=== PATIENT | female | born 1955 | race Caucasian/White ===

== ENCOUNTER → 2017-06-05 09:57 | Outpatient (CLI) | payer OTHER, SELFPAY ==
--- NOTE | 2017-06-05 10:01 | HPBI_ITS ---
MAMMOGRAPHY - BILATERAL SCREENING REASON FOR EXAM: Female, 62 years old. Routine annual screening examination. PERTINENT HISTORY: Non-contributory. TECHNIQUE: Digital bilateral breast marcio (3D mammographic acquisition) in the CC and MLO projections. 2-D mediolateral oblique (MLO) and craniocaudad (CC) views of both breasts were obtained. CAD: Full Field Digital Mammography with Computer Added Detection was performed. COMPARISON: No comparison mammograms available at this time. If any prior films become available, an addendum to this report can be generated. FINDINGS: Breast Composition: The breasts are almost entirely fatty. There are no dominant masses or suspicious calcifications. No other significant abnormalities are identified. HPBI/SCREENING MAMM (CAD), BILAT IMPRESSION: Negative screening mammogram. Yearly followup mammogram recommended. (A) ASSESSMENT CATEGORY: BIRADS Category 1: Negative. A letter regarding these results will be sent to the patient by the facility within 30 days. Approximately 10% of breast cancers are not detected by mammography. A normal mammogram should not delay biopsy of a clinically suspicious abnormality. [id number] Electronically Signed: Clark Balderas MD at 13:35 EST Tel [phone], Service support ,
== END ==
PROVIDERS: Family Provider Family Medicine; PCP Family Medicine; Visit Provider Family Medicine
DX: Z12.31 Encounter for screening mammogram for malignant neoplasm of breast (principal)
CPT/HCPCS: 77063; 77067

== ENCOUNTER → 2018-05-29 07:48 | Outpatient (CLI) | payer OTHER, SELFPAY ==
--- NOTE | 2018-05-29 07:54 | CT_ITS ---
STUDY: CT SOFT TISSUE NECK WITH CONTRAST REASON FOR EXAM: Female, 63 years old. Right tonsillar mass x2 months RADIATION DOSAGE (If Supplied By Facility): CTDIvol = ( 22.14 ) mGy, DLP = ( 619.18 ) mGycm TECHNIQUE: The patient was scanned in a multi-detector CT scanner. High resolution transaxial imaging was performed following intravenous administration of Isovue 300 75 IV. Sagittal and coronal images were reconstructed. Individualized dose optimization techniques were used for this CT. COMPARISON: None. FINDINGS: Normal bilateral parotid glands. 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 Normal bilateral parapharyngeal spaces. Normal bilateral carotid spaces. There is a 4.2 mm calculus of the proximal right Normal's duct. Normal visualized nasopharynx. Normal retropharyngeal space. Normal perivertebral space. There is a lobular right tonsillar mass with thin enhancing margins measuring 1.7 x 1.5 x 2.9 cm. The visualized tongue, tongue base and oropharynx are normal. The visualized cervical lymph nodes (levels I-) are within normal size limits, and maintain normal morphology. There is no demonstrated solid or cystic mass lesion. There is no abnormal contrast enhancement. Normal epiglottis, bilateral vallecula and hypopharynx. The pre-epiglottic and paraglottic adipose spaces are normal. Normal visualized bilateral piriform sinuses, aryepiglottic folds, vocal cords, and arytenoid-cricoid articulations. Normal subglottic trachea. Normal bilateral lobes of the thyroid gland. Normal visualized pulmonary apices. Normal visualized paranasal sinuses. There is multilevel degenerative changes of the cervical spine. CT/Soft Tissue Neck WITH Contrast IMPRESSION: Lobular right tonsillar mass with thin enhancing margins measuring 1.7 x 1.5 x 2.9 cm. MRI may be helpful for further evaluation. There is a 4.2 mm calculus of the proximal right Normal's duct. Electronically Signed: Eliseo López MD at 23:51 EST , Service support ,
[2018-05-29 08:10] LABS: CREATININE FINGERSTICK 1.1 mg/dL (0.55-1.02)
== END ==
PROVIDERS: Family Provider Family Medicine; PCP Family Medicine; Referring Provider Otolaryngology; Visit Provider Otolaryngology
DX: J35.8 Other chronic diseases of tonsils and adenoids (principal)
CPT/HCPCS: 70491; Q9967

== ENCOUNTER 2018-06-09 09:40 | Day surgery (SDC) | payer OTHER, SELFPAY ==
--- NOTE | 2018-06-02 09:30 | RAD_ITS ---
STUDY: X-RAY CHEST REASON FOR EXAM: Female, 63 years old. Preoperative evaluation. TECHNIQUE: PA and lateral views of the chest. COMPARISON: None. FINDINGS: Hyperinflation. Mild increased linear markings at the lung bases suggestive of underlying atelectasis and/or scarring. There is no demonstrated pleural abnormality. Normal size heart. Normal mediastinum and sohail. Normal visualized pulmonary arteries. There is atherosclerotic calcification of the aortic arch with tortuosity. There are degenerative changes of the visualized thoracic spine. Normal visualized ribs, clavicles, and shoulders. There is no demonstrated abnormality of the visualized soft tissue structures of the upper abdomen. RAD/Chest PA and Lateral IMPRESSION: Mild increased markings at the lung bases suggestive of either linear atelectasis and/or scarring. Electronically Signed: Clark Balderas MD at 9:51 EST , Service support ,
--- NOTE | 2018-06-02 09:40 | EKG12_ITS ---
Test Reason : PREOP Blood Pressure : / mmHG Vent. Rate : 071 BPM Atrial Rate : 071 BPM P-R Int : 140 ms QRS Dur : 082 ms QT Int : 416 ms P-R-T Axes : 083 010 049 degrees QTc Int : 452 ms Normal sinus rhythm Right atrial enlargement Borderline ECG Confirmed by TERESA GEORGE, ETHAN ([id number]), editor index KARL BOWER ([id number]) on 06/03/2018 11:02:11 AM Referred By: Lionel Evans Confirmed By:ETHAN MOORE MD
[2018-06-02 09:44] LABS: Hematocrit 46.1 % (37-47); Hemoglobin 14.9 g/dl (12.0-15.0); Mean Corp Hgb Conc 32.3 g/gl (32-36); Mean Corpuscular Hgb 29.6 pg (27.0-32.0); Mean Corpuscular Volume 91.7 fL (81-99); Mean Platelet Vol. 9.8 fl (6.2-12.0); Platelet Count 196 K/mm3 (150-450); RBC Distribution Width CV 12.7 % (11.6-14.6); RBC Distribution Width SD 41.8 fl (35.1-43.9); Red Blood Count 5.03 M/mm3 (4.2-5.4); Scan Indicated on CBC? Y/N NO
[2018-06-02 10:21] LABS: Anion Gap 9 (5-15); BUN 10 mg/dL (7-18); BUN/Creat Ratio 13.4 RATIO (10-20); Chloride 108 mmol/L (98-107); Creatinine, Serum 0.75 mg/dL (0.55-1.02); EST Glomerular Filtration Rate 83 mL/min (>60); Est Glom Filt Rate - Afr Amer 101 mL/min (>60); Glucose 114 mg/dL (74-106); Potassium 3.7 mmol/L (3.5-5.1); Sodium Level 140 mmol/L (136-145)
[2018-06-02 17:24] LABS: Thyroid Stim Hormone (TSH) 0.02 uIU/mL (0.358-3.74)
--- NOTE | 2018-06-09 | IMM_PTH ---
PATIENT: NUBIA CORNELL LOC: [facility] [place] U#:[id number] AGE/SX: 63/F ROOM: RE06/09/[address]: Dr. Pawan Evans MD : 1955 BED: DIS: 06/09/2018 SPEC #: [id number] RECD: 06/10/18 14:05 STATUS: MICK JENNIFER #: [id number] JM: 06/09/18 00:[address]: Pawan Evans DEPT: IMMUNOHISTOCHEMISTRY RECD BY: Nola Hendrickson ENTERED: 06/10/18 14:06 SP TYPE: IMMUNO OTHR DR: Dr. Leroy Kidd MD Tissues: B - Tonsil, NOS Procedures: p16 (initial) PHYSICIAN & INSTITUTION [place] [id number] SPECIMEN INFORMATION: Tissue Source: B - Right tonsil mass Clinical Info: Neoplasm of pharynx Specimen Number: [id number] CPT code: 49620 METHODOLOGY: Deparaffinized sections of prefer/formalin-fixed tissue or PAP/DQ stained slides are incubated with monoclonal/polyclonal antibodies/oligonucleotide probes. Localization is made via biotin free immunoperoxidase method. Appropriate controls are performed and reacted as expected. Results on target cell population are indicated in the following table: RESULTS: ANTIBODY / CLONE RESULT Block B P16 (E6H4) positive, block staining These tests were developed and their performance characteristics determined by [facility]. They may not have been cleared or approved by the U.S. Food and Drug Administration. The FDA has determined that such clearance or approval is not necessary. INTERPRETATION: B. Right tonsil mass, biopsy: Consistent with squamous cell carcinoma in situ. SJ:katie 06/11/18
[2018-06-09 10:00] VITALS: BP 135/71; PULSE 71; RESP 18; TEMP 530.8; TEMP 987.4; O2SAT 98; BMI 33.3
--- NOTE | 2018-06-09 11:15 | TONS_PTH ---
PATIENT: NUB[place] CORNELL [place] [facility] [place][id number] AGE/SX: 63/F ROOM: RE06/09/[address]: Dr. Pawan Evans MD : 1955 BED: DIS: 06/09/2018 SPEC #: [id number] RECD: 06/09/18 12:47 STATUS: MICK RELokesh #: [id number] JM: 06/09/18 11:[address]: Pawan Evans DEPT: SURGICAL PATHOLOGY RECD BY: Gerson Philippe ENTERED: 06/09/18 14:55 SP TYPE: TONSILS OTHR DR: Dr. Leroy Kidd MD Tissues: A - Tonsil, NOS B - Tonsil, NOS Procedures: Surgery Specimen Level III Surgery Specimen Level IV HEADER OPERATION: Right oropharyngeal biopsy, left tonsillectomy PRE-OP DIAGNOSIS: Neoplasm uncertain behavior of pharynx TISSUE SUBMITTED: A - Left tonsil, B - Right tonsil mass MICROSCOPIC DIAGNOSIS A. Left tonsil, tonsillectomy: Reactive lymphoid hyperplasia. Focal actinomyces colonization. B. Right tonsil mass, biopsy: Squamous cell carcinoma in situ. Negative for invasive carcinoma in the submitted specimen. See comment. SJ:katie 06/10/18 COMMENT B. Results from immunohistochemistry ([id number]) for surrogate HPV marker (p16) will be reported separately. MICROSCOPIC DESCRIPTION Slides are reviewed. GROSS DESCRIPTION A - Received in formalin labeled with the patient's name and designated left tonsil. The specimen consists of a tonsil that weighs 2.1 gm and measures 2.5 x 1.5 x 1 cm. The external surface is pink-cadena, smooth, glistening and somewhat lobulated. Focally it is hemorrhagic, granular and bears cautery artifact. Serial cross sections through the tonsil reveal normal tonsillar architecture. The entire specimen is submitted in one cassette. B - Received in formalin labeled with the patient's name and designated right tonsil mass. The specimen consists of two pieces of cadena soft tissue measuring in aggregate 1.2 x 0.5 x 0.5 cm. The larger piece is bisected. The entire specimen is submitted in one cassette. / JUAN:katie 06/09/18 TC:0 CPT: 45592, 97331
--- NOTE | 2018-06-09 11:19 | DCINST_ITS ---
You will use the following diet at home:: No restrictions Your food should be the consistency of: Mechanical soft (ground) Discharge Activity: May not drive while taking narcotic pain medications. Call your doctor if your incision/area has: Increased Pain/ Swelling Allergies/Adverse Reactions: Allergies morphine Adverse Reaction (Verified 06/09/18 09:57) Vomiting Medications to take at Discharge Bupropion HCl [Bupropion Xl] 300 mg PO DAILY 06/02/18 Levothyroxine [Synthroid] 125 mcg PO DAILY 06/02/18 Lovastatin 40 mg PO DAILY 06/02/18 Oxycodone HCl/Acetaminophen [Percocet 5/325] 1 tab PO Q6H PRN PRN 10 Days #30 tab 06/09/18 The following prescriptions were given: Oxycodone HCl/Acetaminophen [Percocet 5/325] 1 tab PO Q6H PRN PRN 10 Days #30 tab PRN Reason: Pain Orders to be completed after discharge: Thyroid Stim Hormone (TSH) Time Frame: 06/02/18, Location: Laboratory Primary Care Physician: Leroy Kidd MD [Primary Care Provider] - Test Results: Test results from this visit will be discussed in further detail at your follow- up appointment, if applicable. Please Follow Up With: Lionel Evans MD When: 1 week
--- NOTE | 2018-06-09 11:19 | PCM.OPRPT ---
Problem List (1) Mass of oropharynx Status: Chronic Report of Operation Date of Procedure: 06/09/18 Pre-Operative Diagnosis: right oropharyngeal mass Post-Operative Diagnosis: right oropharyngeal mass Surgery/Procedure Performed:: 1. right oropharyngeal mass biopsy. 2. left tonsillectomy Type of Anesthesia:: General Specimen's removed: right oropharynx biopsy, left tonsil Description of Procedure: on the day of the procedure, after appropriate informed consent was obtained the patient was brought to the operating room and placed in supine position on the operating table. she was placed under general endotracheal anesthesia by the anesthesiologist. the endotracheal tube was secured, the eyes were taped. the table was rotated 90 degrees toward the surgeon. a head drape was placed. a chaitanya-jessica mouthgag was inserted into the oral cavity with care not to damage the lips or gums. it was suspended. a right sided 4cm mass replacing the entire tonsillar fossa was seen and a biopsy was taken. this approached the lingual surface of the epiglottis but did not involve it. there was no gross laryngeal involvement. the area was cauterized. the left tonsil was grasped with a curved allis clamp and retracted medially. it was dissected and removed with bovie electrocautery. hemostasis was achieved with suction electrocautery. a valsalva maneuver was held by anesthesiology. hemostasis was observed. floseal was placed in the bilateral tonsillar fossae. the table was rotated 90 degrees toward the anesthesiologist and subsequently extubated uneventfully. she was transferred to the PACU in stable condition.
[2018-06-09 12:07] VITALS: BP 152/78; PULSE 66; RESP 16; TEMP 36.4; O2SAT 98
[2018-06-09 12:15] VITALS: BP 135/71; BP 167/68; PULSE 61; RESP 18; O2SAT 97
[2018-06-09 12:30] VITALS: BP 134/69; BP 135/71; PULSE 59; RESP 16; O2SAT 97
--- NOTE | 2018-06-09 12:36 | SUR.PREOP ---
VS CHARTED WRONG TEMP 98.4
[2018-06-09 12:44] VITALS: BP 130/65; BP 135/71; PULSE 60; RESP 16; TEMP 36.7; O2SAT 99
[2018-06-09 14:01] VITALS: BP 135/71; BP 144/64; PULSE 65; RESP 16; TEMP 36.6; O2SAT 96
== END 2018-06-09 14:17 | disposition home or self-care (01) ==
LOC: SDC 09:41 → AC 09:42
PROVIDERS: Family Provider Family Medicine; PCP Family Medicine; Referring Provider Otolaryngology; Visit Provider Otolaryngology
PROC: (CPT 42800; principal; 2018-06-09 11:00)
DX: C09.9 Malignant neoplasm of tonsil, unspecified (principal); F32.9 Major depressive disorder, single episode, unspecified; E07.9 Disorder of thyroid, unspecified; Z79.899 Other long term (current) drug therapy; E78.00 Pure hypercholesterolemia, unspecified; Z87.891 Personal history of nicotine dependence; D37.05 Neoplasm of uncertain behavior of pharynx
CPT/HCPCS: 42800; 42826; 36415; 71046; 80048; 84443; 85027; 88304; 88305; 88342; 93005; J7120; J2405

== ENCOUNTER → 2018-07-07 08:05 | Outpatient (CLI) | payer OTHER, SELFPAY ==
[2018-06-09 10:00] VITALS: BMI 33.3
--- NOTE | 2018-07-07 09:00 | PET_ITS ---
EXAMINATION: FDG PET CT INDICATIONS: A 63-year-old female with history of head and neck carcinoma presenting for restaging examination. COMPARISON EXAMINATION: CT of the neck report dated 05/29/18. INDEX LESION SIZE SUV INTERPRETATION Right pharyngeal mucosal space-tongue base, lingual tonsil 32.1 mm x 24.1 mm (frame 239) 17.5 Fulfills quantitative criteria for viable neoplasm Right lateral neck level III (n = 1) 15.2 mm (frame 234) 2.9 Fulfills quantitative criteria for viable neoplasm TECHNIQUE: Following the intravenous administration of 17.51 mCi of F-18 deoxyglucose via the left antecubital fossa, multiplanar image acquisitions of the neck, chest, abdomen and pelvis to level of mid thigh, obtained at one hour post radiopharmaceutical administration contemporaneously interpreted with the current CT of the neck, chest, abdomen and pelvis to level of mid thigh, dated 07/07/[address] of the neck report dated 05/29/18 reveal: SERUM GLUCOSE LEVEL: 100 mg/dl. HEIGHT: 64 inches. WEIGHT: 181 lbs. FINDINGS: 1. An asymmetric increase in glucose metabolism is defined in the right pharyngeal mucosal space in the region of the tonsillar pillar, lingual tonsil and tongue base. The calculated maximum standard uptake value is 17.5. The maximal axial diameter of the corresponding metabolic, morphologic abnormality on review of CT of the neck dated 07/07/18 is 32.1 mm (transverse) x 24.1 mm (AP). 2. There is an asymmetric increase in FDG concentration visualized in the right lateral neck involving level III in single nodular presentation. The calculated maximum standard uptake value is 2.9. The maximal axial diameter of the corresponding soft tissue density on review of CT of the neck dated 07/07/18 is 15.2 mm (AP). 3. Normal physiologic distribution of the radiopharmaceutical is apparent in the hepatic (3.2) and splenic parenchyma, both renal units, bladder and visualized intestinal tract. There is symmetric and preserved glucose metabolism noted in the visualized portion of the frontal, occipital, temporal and parietal lobes of the cerebral cortex, as well as cerebral hemispheres and basal ganglia. Diffuse intestinal tract activity is noted throughout all four quadrants of the abdominal-pelvic retroperitoneum, mesentery consistent with normal physiologic distribution of the radiopharmaceutical. Prominent glucose metabolism is defined in the anterior neck, laryngeal structures, which appears contiguous to the cricopharyngeus musculature most consistent with physiologic distribution of the radiopharmaceutical. There is prominent glucose metabolism defined in the ascending and descending thoracic aorta commensurate with activated leukocytes associated with atherosclerotic plaque formation. (Abilio et al, Clinical Nuclear Medicine 29:93, 2004). Pertinent CT findings are as follows. CHEST: Atherosclerotic calcification is defined in the thoracic aorta without evidence of dilatation, aneurysm formation. Coronary arterial calcification is observed. There are no parenchymal densities-nodules defined in the right-left hemithorax demonstrating discernible, quantitatively significant increased glucose metabolism. Bilateral axillary and mediastinal soft tissue is non-glucose avid. ABDOMEN AND PELVIS: There appears to be evidence of gallbladder sludge. Atherosclerotic calcification is defined in the abdominal aorta without evidence of dilatation, aneurysm formation. Pelvic arterial calcification is observed. Colonic diverticulosis is defined without evidence of diverticulitis. Right-left inguinal soft tissue densities are ametabolic. SKELETAL: Degenerative changes defined in the cervical, thoracic and lumbar spine demonstrate no evidence for glucose hypermetabolism. PET/PET/CT Tumor Base -Thigh Init IMPRESSION: 1. ABNORMAL EXAMINATION INDICATIVE OF MALIGNANT-VIABLE NEOPLASM. 2. Increased FDG concentration noted in the right pharyngeal mucosal space contiguous to tongue base, lingual tonsil fulfills quantitative criteria for viable neoplasm. 3. Asymmetric enhanced glucose concentration observed in the right lateral neck fulfills quantitative criteria for viable neoplasm. 4. No other quantitatively significant hypermetabolic abnormalities are noted. There is no definitive scintigraphic evidence of distant metastatic disease. Electronic Signature Jarod Pierce D.O. Electronically Signed: Jarod Pierce DO at 10:01 EDT Tel , Service support ,
== END ==
PROVIDERS: Family Provider Family Medicine; PCP Family Medicine; Referring Provider Internal Medicine Hematology & Oncology; Visit Provider Internal Medicine Hematology & Oncology
DX: C09.9 Malignant neoplasm of tonsil, unspecified (principal)
CPT/HCPCS: 78815; A9552

== ENCOUNTER 2018-09-05 17:51 | Emergency (ER) | payer OTHER, SELFPAY ==
[2018-09-05 17:52] VITALS: BP 104/71; PULSE 66; RESP 14; TEMP 36.3; O2SAT 97; BMI 27.9
--- NOTE | 2018-09-05 18:46 | ED.DCSUM_ITS ---
History of Present Illness Chief Complaint: General Illness Detail of Chief Complaint: feels dehydrated Informant: Patient Onset: Weeks - 1 Context: Gradual Onset Timing: Continuous Quality: malaise, decreased po intake Location: generalized Current Severity: Moderate Maximum Severity: Moderate Worsened by: n/a Relieved by: n/a Narrative: Patient is on chemotherapy for tonsillar cancer, and she has had radiation. Her last chemotherapy treatment was about 3 weeks ago. She has trouble swallowing, whenever she does she gets a lot of mucus that she ends up having to cough out that is thick, and her appetite is poor. Subsequently her oral intake has been poor, she is still urinating but it is a little less than usual and darker. She does not feel lightheaded even with standing, she feels malaise but that is not new. She has had no fevers. She had some routine blood work today that showed she was dehydrated so her oncologist called her back after she got home and advised that she come to the ER for IV fluids given the scenario. These labs are not available to us at this time. - Past Medical History (1) Tonsillar cancer Status: Chronic (2) Hypothyroid Status: Chronic (3) Depression Status: Chronic Past Medical History - Allergies and Home Meds Allergies/Adverse Reactions: Allergies morphine Adverse Reaction (Verified 09/05/18 17:52) Vomiting Primary Care Physician: Leroy Kidd MD [Primary Care Provider] - Lives: Spouse/ Significant Other Smoking Status: Former smoker Review of Systems General: Reports: Malaise. Denies: Chills, Fever Eyes: Denies: Visual changes - bilaterally, Diplopia ENT: Denies: Rhinorrhea, Sore throat Cardiovascular: Denies: Chest pain, Palpitations Respiratory: Reports: Cough - Occasional, when mucus present. Denies: Dyspnea, Dyspnea on exertion Gastrointestinal: Denies: Abdominal pain, Nausea, Vomiting, Diarrhea, Melena, Hematochezia Genitourinary: Reports: - - Slightly decreased urine output. Denies: Dysuria, Hematuria, Frequency Musculoskeletal: Denies: Back pain, Swelling, Extremity Pain Skin: Denies: Rash, Abscess, Wounds Neurological: Denies: Headache, Weakness, Numbness Physical Exam Vital Signs/Narrative: Vital Signs Temp Pulse Resp BP Pulse Ox 09/05/18 17:52 97.4 F L 66 14 104/71 97 Inital Vital Signs reviewed: Yes General: Well nourished, Well developed, No Acute Distress Head: Normocephalic, Atraumatic Eyes: Perrl, EOMI ENT: Moist mucous membranes - With dry lips, No rhinorrhea, - - Diffuse significant hyperemia posterior oropharynx, no obvious asymmetry. No trismus. Neck: Supple, Nontender Cardiovascular: Regular rate, Regular rhythm, No murmurs Respiratory: No distress, CTA bilaterally, Chest nontender Abdomen: Soft, Nontender, Nondistended, Normal bowel sounds Back: Nontender, Normal Inspection Extremities: Nontender, No edema Skin: Normal color, No rash, No Trauma Neurological: Alert, Oriented x3, Cranial nerves II-XII grossly intact, Normal Strength, Normal Sensation Psychological: Normal affect, Normal Mood Diagnostic/Tx/Re-eval Laboratory Tests 09/05/18 09/05/18 Range/Units 18:00 18:00 WBC 3.5 L (4.4-11.0) K/mm3 RBC 5.91 H (4.2-5.4) M/mm3 Hgb 17.2 H (12.0-15.0) g/dl Hct 47.6 H (37-47) % MCV 80.5 L (81-99) fL MCH 29.1 (27.0-32.0) pg MCHC 36.1 H (32-36) g/gl RDW 13.0 (11.6-14.6) % RDW Differential 37.2 (35.1-43.9) fl Plt Count 214 (150-450) K/mm3 MPV 9.8 (6.2-12.0) fl Immature Gran % (Auto) 0.600 (0.0-0.9) % Neut % (Auto) 42.8 L (47-70) % Lymph % (Auto) 31.5 (19-41) % [place] % (Auto) 22.8 H (0-10) % Eos % (Auto) 2.0 (0-5) % Baso % (Auto) 0.3 (0-1) % Absolute Neuts (auto) 1.5 L (2.0-7.7) X10^3/uL Absolute Lymphs (auto) 1.09 (0.83-4.51) X10^3/ul Total Counted Not Reportable Differential Comment SEE COMMENT Platelet Estimate ADEQUATE (ADEQ) Anisocytosis RARE Sodium 124 L (136-145) mmol/L Potassium 3.1 L (3.5-5.1) mmol/L Chloride 86 L (98-107) mmol/L Carbon Dioxide 26.0 (21.0-32.0) mmol/L Anion Gap 12 (5-15) BUN 50 H (7-18) mg/dL Creatinine 2.15 H (0.55-1.02) mg/dL Estim Creat Clear Calc 22.83 ml/min Est GFR (MDRD) Af Amer 30 L (>60) mL/min Est GFR (MDRD) Non-Af 25 L (>60) mL/min BUN/Creatinine Ratio 23.3 H (10-20) RATIO Glucose 107 H (74-106) mg/dL Calcium 10.0 (8.5-10.1) mg/dL - Medical Decision Making Although Dr. Isabel apparently faxed the labs to us, they must have gotten lost and I was unable to see them so we repeated her chemistries and blood counts. She has acute kidney injury with a BUN of 50 and a creatinine over 2, her potassium is 3.1, and her sodium is 124. I discussed this with Dr. Isabel, who thinks it is just dehydration (as opposed to paraneoplastic syndrome) causing the sodium and potassium drops and since the patient is doing better after IV fluids he is comfortable with her going home and following up after the weekend as scheduled, patient is comfortable with that as well. She is encouraged to return over the weekend if she feels it is required. She is getting IV potassium 10 mEq from us in addition to 2 L of fluid total. ED Disposition - Plan for ED Patient: Disposition: Home or Assisted Living Diagnosis: Dehydration, Hypokalemia due to inadequate potassium intake, Hyponatremia with extracellular fluid depletion, Tonsillar cancer Instructions: ED Dehydration, ED Hyponatremia, ED Potassium Deficiency Referrals: Jaiden Isabel, [STAFF PHYSICIAN] - Keep Timo appointment (please return over the weekend if you feel worse like you need more IV fluids)
[2018-09-05] MEDS: 0.9% Normal Saline 1,000 ML 999 ML IV ×2 (18:50→19:36)
[2018-09-05 19:07] LABS: Absolute Lymphocyte Count 1.09 X10^3/ul (0.83-4.51); Absolute Neutrophil Count 1.5 X10^3/uL (2.0-7.7); Basophil# 0.01 X10^3/uL; Basophil% 0.3 % (0-1); Eosinophil# 0.07 X10^3/uL; Hematocrit 47.6 % (37-47); Lymphocyte # 1.09 X10^3/ul (4.0); Lymphocyte % 31.5 % (19-41); Mean Corpuscular Volume 80.5 fL (81-99); Mean Platelet Vol. 9.8 fl (6.2-12.0); Monocyte# 0.79 X10^3/uL; Monocyte% 22.8 % (0-10); Neutrophil # 1.48 X10^3/uL (2.7-7.7); Neutrophil % 42.8 % (47-70); Platelet Count 214 K/mm3 (150-450); RBC Distribution Width SD 37.2 fl (35.1-43.9); Red Blood Count 5.91 M/mm3 (4.2-5.4); White Blood Count 3.5 K/mm3 (4.4-11.0)
[2018-09-05 19:11] LABS: Anion Gap 12 (5-15); BUN 50 mg/dL (7-18); BUN/Creat Ratio 23.3 RATIO (10-20); Chloride 86 mmol/L (98-107); Creatinine, Serum 2.15 mg/dL (0.55-1.02); EST Glomerular Filtration Rate 25 mL/min (>60); Est Glom Filt Rate - Afr Amer 30 mL/min (>60); Estimated Creatinine Clearance 22.83 ml/min; Glucose 107 mg/dL (74-106); Potassium 3.1 mmol/L (3.5-5.1); Sodium Level 124 mmol/L (136-145)
[2018-09-05 19:21] LABS: Differential Indicated SCAN CRITERIA MET; Hemoglobin 17.2 g/dl (12.0-15.0); Mean Corpuscular Hgb 29.1 pg (27.0-32.0); POSITIVE COUNT NO; POSITIVE DIFFERENTIAL YES; POSITIVE MORPHOLOGY NO
[2018-09-05 19:22] LABS: Mean Corp Hgb Conc 36.1 g/gl (32-36)
[2018-09-05 19:32] LABS: Anisocytosis RARE; Platelet Estimate ADEQUATE (ADEQ)
[2018-09-05 19:39] VITALS: BP 123/71; PULSE 70; RESP 15; O2SAT 100
[2018-09-05] MEDS: Potassium Chloride 10mEq/100mL 10 MEQ/100 ML IV.SOLN. 100 MEQ IV BOLUS (21:24)
[2018-09-05 22:30] VITALS: BP 126/68; PULSE 69; RESP 15; O2SAT 100
== END 2018-09-05 22:31 | disposition home or self-care (01) ==
PROVIDERS: Emergency Provider Emergency Medicine; Family Provider Family Medicine; PCP Family Medicine
DX: E86.0 Dehydration (principal); E87.6 Hypokalemia; E87.1 Hypo-osmolality and hyponatremia; C09.9 Malignant neoplasm of tonsil, unspecified; N17.9 Acute kidney failure, unspecified; E03.9 Hypothyroidism, unspecified; F32.9 Major depressive disorder, single episode, unspecified; Z79.899 Other long term (current) drug therapy; Z87.891 Personal history of nicotine dependence
CPT/HCPCS: 80048; 85025; 96361; 96365; 99282; J7030

== ENCOUNTER 2018-12-25 09:22 | Inpatient (IN) | payer OTHER, MEDICARE, SELFPAY ==
[2018-12-25] VITALS (7 sets, daily range): BP systolic 84–95; BP diastolic 55–75; PULSE 56–80; RESP 14–18; TEMP 36.4; O2SAT 94–99; BMI 22.3; BMI 21.3; BMI 21.4
--- NOTE | 2018-12-25 09:40 | ED.VISSUMM ---
- ER Visit Summary Date of Service: 12/25/18 Chief Complaint: Constipation then diarrhea and now feels dehydrated History of Present Illness: The patient is a 63 F history of tonsillar cancer in which she had one tonsil removed and then underwent chemo and radiation that is now over. Last chemotherapy was in September. Patient states she was constipated the last week or so. She took milk of magnesia without any relief. Then used a fleets enema without relief and then a Fleet suppository and now has had some diarrhea. He denies a significant amount. Denies any melena. No nausea or vomiting. No abdominal pain. States she just feels like she is dehydrated again. Denies any dysuria or fever. Physical Examination: Older female no acute distress. Initial blood pressure is low at 91/67. She is afebrile. She does not look septic or toxic. HEENT exam unremarkable. Tongue appears moist. Neck nontender. Trachea midline. Lungs clear to auscultation bilaterally. Heart regular rhythm no murmur. Rate about 80. Abdomen soft and nontender. Normal bowel sounds no peritoneal signs. No signs of obstruction. No distention. Patient is moving all 4 extremities. No edema. Neurologically she is awake and alert with no focal motor deficits. Test Results: CBC shows normal white count of 4 and hemoglobin of 16. BMP shows low sodium of 120. Previously his bili is low as 124. Normal gap of 12. BUN 29 creatinine 2.31. There is some renal insufficiency. Emergency Department Course and Treatment: With the patient's low blood pressure and recent diarrhea she will be treated with IV fluids for potential dehydration. Treatment Plan: Repeat exam patient is doing well at 11:50 AM. Due to her low sodium and renal insufficiency I will speak to the hospitalist to admit her. She has received a liter of normal saline. Disposition: Admission Impression: Acute diarrhea post treatment for constipation Hypotension secondary to dehydration Acute hyponatremia Renal insufficiency This note was generated with Dr. Tariffation software. It may contain incorrect words, spelling, and punctuation that were not noted in review of the chart prior to signing ED Disposition - Plan for ED Patient: Referrals: Leroy Kidd MD [Primary Care Provider] -
[2018-12-25] MEDS: 0.9% Normal Saline 1,000 ML 1000 ML IV (10:08)
[2018-12-25 10:18] LABS: Absolute Lymphocyte Count 0.27 X10^3/uL (0.83-4.51); Absolute Neutrophil Count 3.3 X10^3/uL (2.0-7.7); Basophil# 0.01 X10^3/uL; Basophil% 0.3 % (0-1); Eosinophil# 0.01 X10^3/uL; Eosinophils% 0.3 % (0-5); Hematocrit 46.4 % (37-47); Hemoglobin 16.1 g/dL (12.0-15.0); Lymphocyte # 0.27 X10^3/ul (4.0); Lymphocyte % 6.8 % (19-41); Mean Corp Hgb Conc 34.7 g/dL (32-36); Mean Corpuscular Hgb 32.2 pg (27.0-32.0); Mean Corpuscular Volume 92.8 fL (81-99); Mean Platelet Vol. 10.1 fl (6.2-12.0); Monocyte# 0.35 X10^3/uL; Monocyte% 8.8 % (0-10); NRBC Flagged by Analyzer 0 % (0-5); Neutrophil # 3.31 X10^3/uL (2.7-7.7); Neutrophil % 83.5 % (47-70); POSITIVE DIFFERENTIAL YES; Platelet Count 159 K/mm3 (150-450); RBC Distribution Width CV 13.4 % (11.6-14.6); RBC Distribution Width SD 45.2 fl (35.1-43.9)
[2018-12-25 10:38] LABS: Anion Gap 12 (5-15); BUN 29 mg/dL (7-18); BUN/Creat Ratio 12.6 RATIO (10-20); Calcium,Total 10.2 mg/dL (8.5-10.1); Chloride 87 mmol/L (98-107); Creatinine, Serum 2.31 mg/dL (0.55-1.02); EST Glomerular Filtration Rate 23 mL/min (>60); Est Glom Filt Rate - Afr Amer 27 mL/min (>60); Estimated Creatinine Clearance 21.25 ml/min; Glucose 97 mg/dL (74-106); Potassium 4.8 mmol/L (3.5-5.1); Sodium Level 120 mmol/L (136-145)
[2018-12-25 11:01] LABS: Differential Indicated SCAN CRITERIA MET
--- NOTE | 2018-12-25 12:19 | HP.PCM_ITS ---
Problem List (1) Hyponatremia Status: Acute (2) ARF (acute renal failure) Status: Acute (3) Dehydration Status: Acute (4) Diarrhea Status: Acute (5) Depression Status: Chronic (6) Hypothyroid Status: Chronic (7) Mass of oropharynx Status: Resolved Comment: no longer present after chemo and radiation (8) Tonsillar cancer Status: Chronic History of Present Illness Date of Admission: 12/25/18 Chief Complaint: diarrhea and not feeling well The patient is a 63 year old F with a past medical history of tonsillar cancer treated by Dr. Isabel, hypothyroidism, former smoking hx(quit in 2016) and depression who presented to the ED at [facility] on 12/25/18 c/o diarrhea after laxatives and not feeling well. She took laxatives recently because she had not had a BM in 2 weeks. She quit taking all her medications because she could not taste anything after the chemo and radiation and she lost her appetite. She has been experiencing weakness, loss of appetite, hair loss, constipation, always feels cold and she is chronically fatigued. she has been losing weight because she has not been eating. She denies abdominal pain, nausea/vomiting, fevers/sweats/chills, cough and shortness of breath. Vital signs at presentation to the emergency room were temperature 97.5, pulse rate 79, blood pressure 91/67, respiratory rate 14 and she was 96% saturated on room air. CBC was remarkable for a white blood cell count of 4.0, hemoglobin of 16.1 with normochromic normocytic indices and a normal platelet count. Sodium was low at 120 and the chloride was 87. BUN is 29 and the creatinine was 2.31. Calcium is increased at 10.2 and the LFTs were unremarkable. TSH was 79.2 and the free T4 was low at 0.62. Cortisol is currently pending. She received 1 liter of NS in the ED. She was admitted to the hospital with a dx of severe hyponatremia due to hypothyroidism and to dehydration. IV fluids were ordered and she has been restarted on Levothyroxine. Her taste is coming back and she loves ice cream and CIB. Will have the senior sql server developer see her and make recommendations. 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 Smoked for 40 years, 1/2 PPD Tobacco Use: Non-smoker Alcohol: None Drugs: None - *Family History Maternal History Items: Cancer - Her mother of lung cancer Paternal History Items: - - Father of a brain tumor Sibling History Items: - - She has 2 siblings, one with irritable bowel syndrome and the other has Munchhausen's per the pt Review of Systems Constitutional: Reports: Anorexia, Malaise, Weakness, Fatigue. Denies: Chills, Fever, Weight Change Eyes: Denies: Blurred vision HEENT: Reports: - - no pain with swallowing, reports decreased ability to taste. Denies: Difficulty Swallowing, Head Aches, Sinus Congestion, Sinus Drainage, Sore Throat Cardiovascular: Denies: Chest Pain, Edema, Heaviness, Light Headedness, Palpitations Respiratory: Denies: Cough, Hemoptysis, Pleuritic Pain, Shortness of breath at rest, Shortness of breath upon exertion, Sputum production, Wheezing Gastrointestinal: Reports: Constipation, Diarrhea - only after several laxatives. Denies: Abdominal Pain, Nausea, Vomiting Genitourinary: Denies: Dysuria Gynecological: Denies: Breast symptoms, Vaginal discharge Musculoskeletal: Denies: Joint Pain, Joint Tenderness, Neck Pain Skin: Denies: Jaundice, Rash, Wounds Neurological: Denies: Balance problems, Change in Speech, Focal weakness, Numbness, Tingling, Tremor, Seizures Psychiatric: Reports: Depression. Denies: Anxiety, Homicidal Ideations, Suicidal Ideations Endocrine: Reports: Change in Body Habitus - has been losing weight due to decreased appetite and decreased intake, Heat/ Cold Intolerance - cold intolerance, Hx of Irradiation - to the neck and throat for tonsillar CA Hematologic/ Lymphatic: Denies: Easy Bruising, Easy Bleeding, Hx of blood clot VTE Information - Inpt Only VTE Present on Admission: No VTE Mechan Device Prophylaxis: SCD's, Knee High ALFONSO Hose VTE Pharm Prophylaxis ordered?: Yes Patient Problems: Active and Suspected Problems Hyponatremia (Acute) ARF (acute renal failure) (Acute) Dehydration (Acute) Diarrhea (Acute) - Physical Exam General: Alert, Oriented x3, Cooperative, No apparent distress, - - she is thin, HEENT: Atraumatic, PERRLA, EOMI, Normocephalic Oral: No Gingival or Mucosal Lesions/ Ulcerations, Dry Mucosa Neck: Supple, No JVD, Negative Carotid Bruits, No Nodes, Trachea Midline Lungs: Clear to auscultation - after a cough and a few deep breaths Cardiovascular: Regular rate, Regular Rhythm, Normal S1, Normal S2, No murmurs, No rub noted, No Gallop Abdomen: Bowel Sounds Present, Soft, Non Tender, Non-Distended, - - pt was disimpacted of a large amount of both hard and soft stool Extremities: No clubbing, No cyanosis, No edema, No Calf Tenderness, Peripheral Pulses Normal Skin: No rashes, No breakdown, - - she has hyperpigmentation over the anterior neck and the upper chest due to the recent radiation Musculoskeletal: Arthritic Changes Neurological: Cranial nerves II-XII grossly intact, Neuro grossly intact Psych/Mental Status: Normal Affect, Appropriate Vital Signs Temp Pulse Resp BP Pulse Ox 97.5 F L 79 18 91/67 96 12/25/18 09:23 12/25/18 09:23 12/25/18 12:06 12/25/18 09:23 12/25/18 09:23 Oxygen Delivery Method Room Air Weight: 130 lb Body Mass Index (BMI) 22.3 Laboratory Tests Past 24 Hrs 12/25/18 12/25/18 10:09 10:09 WBC 4.0 L RBC 5.00 Hgb 16.1 H Hct 46.4 MCV 92.8 MCH 32.2 H MCHC 34.7 RDW Std Deviation 45.2 H RDW Coeff of Julien 13.4 Plt Count 159 MPV 10.1 Immature Gran % (Auto) 0.300 Neut % (Auto) 83.5 H Lymph % (Auto) 6.8 L [place] % (Auto) 8.8 Eos % (Auto) 0.3 Baso % (Auto) 0.3 Absolute Neuts (auto) 3.3 Absolute Lymphs (auto) 0.27 L Nucleated RBC % 0 Differential Comment COMMENT Diff Path Review May foll Sodium 120 L Potassium 4.8 Chloride 87 L Carbon Dioxide 21.0 Anion Gap 12 BUN 29 H Creatinine 2.31 H Estim Creat Clear Calc 21.25 Est GFR (MDRD) Af Amer 27 L Est GFR (MDRD) Non-Af 23 L BUN/Creatinine Ratio 12.6 Glucose 97 Calcium 10.2 H Assessment/Plan All Active Problems Hyponatremia (Acute) ARF (acute renal failure) (Acute) Dehydration (Acute) Diarrhea (Acute) Mass of oropharynx (Resolved) Impressions 1. Severe Hyponatremia due to dehydration and hypothyroidism. Hydrate with NS gently and recheck the lab in the AM 2. Hypothyroidism hx - non-compliant with medication since October....now severely hypothyroid. Restart Levothyroxine at 100 mcg and recheck TSH and T4 in 4 weeks. Check a cortisol 3. hx of Tonillar CA - follows with Dr. Isabel and Dr. Evans. Had 30 radiation treatments and 2 chemo tx's and no surgery 4. severe malnutrition/weight loss - CIB ice cream shakes BID. Consult the senior sql server developer for recommendations. 5. hx of depression - seems to be doing well off the Wellbutrin. If she should require a antidepressant would not use Wellbutrin since it suppresses appetite. 6. VASILE - IV fluids ordered. Check a urine for sodium and creat to calculate the FeNA. 7. DVT prophylaxis with Heparin, SCD's and TEDS. recheck lab in the AM Code Visit Inpatient E&M: 58293 Init Hosp L3
--- NOTE | 2018-12-25 12:38 | CASEMGMT ---
RN CM Assessment Introduced role of RN CM to patient and patient Jaiden at bedside.? Patient is alert, oriented and able?to participate in RN CM Assessment. ?Care providers, pharmacy, and demographics verified. Presentation: Constipation for the last week or so, has tried MoM, Fleets enema, and Fleets Supp. Now has some Diarrhea. Feels Dehydrated. H/o Tonsillar CA, had tonsils removed, Chemo and Radiation completed, last Chemo in September. Admit Dx: Hyponatremia, ARF, Diarrhea Re-Admit: No Barriers/Issues: None PCP: Leroy Kidd Specialists: Onc- Dr Isabel, Rad- Dr Sandoval, ENT- Dr Evans Preferred Pharmacy: [facility], [place] Insurance: MMO Rx Benefit: Yes? LNOK: Jaiden Srinivasan LW/HPOA: None, declines offered information or services this admission. Aware if changes her mind to let staff know. Living Arrangements:?Lives with her in a 2 story home, rooms are located on upper wi, however they have made an area for patient to stay on Main wi and patient does not go up to upper level. 3 steps to enter home. ADL?s: Ambulates with rollator. Requires assistance with showering and meals, otherwise independent with all other ADLs Transportation: Patient does not drive, transports patient and will upon DC DME: Rollator, denies any other DME HHC: None SNF: None Goal: Home and does not think will have any needs. Denies any questions, concerns or issues with DC planning at this time. Aware CM remains available for any emerging needs. DC PLAN: Home with no anticipated needs identified at this time. GABRIEL Styles
[2018-12-25 13:24] LABS: AST(SGOT) 37 U/L (15-37); Alanine Aminotransfer ALT/SGPT 20 U/L (13-56); Albumin, Serum 3.7 g/dL (3.2-5.0); Alkaline Phosphatase 84 U/L (45-117); Bilirubin, Direct 0.24 mg/dL (0.00-0.30); Globulin 4.4 g/dL (2.2-4.2); Protein, Total 8.1 g/dL (6.4-8.2)
[2018-12-25 13:31] LABS: Magnesium 2.4 mg/dL (1.6-2.6); T4 Free Direct 0.62 ng/dL (0.76-1.46)
[2018-12-25] MEDS: 0.9% Normal Saline 1,000 ML 100 ML IV (14:35)
[2018-12-25] MEDS: Famotidine 20 MG Tablet PO (14:36)
[2018-12-25] MEDS: Fleet Enema 1 ML RECTAL (16:45)
[2018-12-25 20:22] LABS: Osmolality, Serum 264 mOsm/KG (280-301)
[2018-12-25] MEDS: Atorvastatin Calcium 10 MG Tablet PO (21:16)
[2018-12-25] MEDS: Polyethylene Glycol 3350 17 GM PACKET PO (21:18)
[2018-12-25 21:25] LABS: Bacteria 0 SEEN /hpf (None Seen); Mucous, Urine 0 SEEN /hpf (<or=2+); Red Blood Cells-Urine 0 SEEN /hpf (0-5)
[2018-12-25 21:35] LABS: Color, Urine Yellow (Yellow); Glucose, Dipstick Normal (Normal); Ketone-Dipstick 5 mg/dl (Negative); Leukocyte Esterase-Dipstick Negative /ul (Negative); Nitrite-Dipstick Negative (Negative); Occult Blood-Urine Negative /ul (Negative); Protein-Dipstick 15 mg/dl (Negative); Specific Gravity, Urine 1.015 (1.002-1.030); Urine Bilirubin Dipstick Negative (Negative); Urine Clarity Clear (Clear); Urine Urobilinogen Normal (Normal)
[2018-12-25 21:36] LABS: Osmolality, Urine 387 mOsm/KG
[2018-12-25 21:41] LABS: Hyaline Cast 0-5 SEEN /lpf (0-5)
[2018-12-25 21:44] LABS: Transitional Epithelial - Ur 0-5 SEEN /hpf (0-5); White Blood Cells 0-5 SEEN /hpf (0-5)
[2018-12-25 21:45] LABS: Squamous Epithelial Cells - UA 0-5 SEEN /hpf (5-10)
[2018-12-25 21:51] LABS: Urine Sodium 22 mmol/L (Not Establ.)
[2018-12-25] MEDS: 0.9% Normal Saline 1,000 ML 999 ML IV (23:08)
[2018-12-26] VITALS (10 sets, daily range): BP systolic 72–96; BP diastolic 48–62; PULSE 52–75; RESP 16–18; TEMP 36.3–36.9; O2SAT 96–100
[2018-12-26] MEDS: 0.9% Normal Saline 1,000 ML 150 ML IV ×2 (00:18→08:46)
[2018-12-26] MEDS: 0.9% Normal Saline 1,000 ML 999 ML IV ×2 (02:18→15:34)
[2018-12-26] MEDS: Levothyroxine 75 MCG Tablet PO (05:09)
[2018-12-26 05:52] LABS: Hematocrit 32.7 % (37-47); Hemoglobin 11.3 g/dL (12.0-15.0); Mean Corp Hgb Conc 34.6 g/dL (32-36); Mean Corpuscular Hgb 32.8 pg (27.0-32.0); Mean Corpuscular Volume 95.1 fL (81-99); Platelet Count 101 K/mm3 (150-450); RBC Distribution Width CV 13.4 % (11.6-14.6); RBC Distribution Width SD 46.8 fl (35.1-43.9); Red Blood Count 3.44 M/mm3 (4.2-5.4); White Blood Count 2.9 K/mm3 (4.4-11.0)
[2018-12-26 06:41] LABS: Anion Gap 9 (5-15); BUN 22 mg/dL (7-18); BUN/Creat Ratio 14.1 RATIO (10-20); Calcium,Total 7.6 mg/dL (8.5-10.1); Chloride 105 mmol/L (98-107); Creatinine, Serum 1.56 mg/dL (0.55-1.02); EST Glomerular Filtration Rate 35 mL/min (>60); Est Glom Filt Rate - Afr Amer 43 mL/min (>60); Estimated Creatinine Clearance 31.46 ml/min; Glucose 74 mg/dL (74-106); Magnesium 1.9 mg/dL (1.6-2.6); Potassium 3.4 mmol/L (3.5-5.1); Sodium Level 132 mmol/L (136-145)
[2018-12-26] MEDS: Famotidine 20 MG Tablet PO (09:11)
[2018-12-26] MEDS: Polyethylene Glycol 3350 17 GM PACKET PO (09:11)
[2018-12-26] MEDS: Hydrocortisone 25 MG Suppository RECTAL (09:11)
--- NOTE | 2018-12-26 10:10 | PN_ITS ---
Patient Problems: Active and Suspected Problems Hyponatremia (Acute) ARF (acute renal failure) (Acute) Dehydration (Acute) Diarrhea (Acute) Subjective: Afebrile since admission. Blood pressures were low overnight and ranged from 81/52-80 8/59. Heart rate is in the 50s and 60s. She is maintaining an appropriate oxygen saturation on room air with pulse ox ranging from 96 to 99%. Poor oral intake. Fluid balance since admission is positive for thousand 760. All lab was personally reviewed. The white blood cell count today is 2.9 and the hemoglobin is 11.3, down from 16.1 with hydration. Platelets are low at 101,000 today, down from 159,000 at admission. Sodium today is 132 and the potassium is 3.4. Serum bicarb is 18 and her BUN is 22 with a creatinine of 1.56, down from 2.31 at admission. Serum osmolality was low at 264. Cortisol was appropriate at 35.8. Urine osmolality was 387. The urine sodium was 22 and the urine creatinine was 130. Fractional excretion of sodium was less than 1% and this is consistent with prerenal azotemia. Calcium is low at 7.6 today and phosphorus is low at 2.0. Magnesium was normal at 1.9. Feels great today. Denies lightheadedness. No SOB and no CP. Had a very large BM after enema yesterday. Orthostatics are + today. No nausea and no confusion, no YUEN Objective: PHYSICAL EXAM: GENERAL: alert, oriented X 3, Cooperative, NAD, Lying flat in bed with no SOB, ORAL: moist mucosa, no mucosal lesions NECK: No JVD, supple, trachea midline LUNGS: CTA, symmetric chest expansion HEART: RRR, Normal S1 and S2, no rub, no gallop ABDOMEN: soft, NT, ND, BS present, no guarding with palpation EXTREMITIES: no edema, no cyanosis, no calf tenderness SKIN: No rashes, no breakdown NEUROLOGIC: no focal neurologic deficits PSYCH: appropriate, normal affect, pleasant - Physical Exam Vital Signs Temp Pulse Resp BP Pulse Ox 98.0 F 60 18 87/57 L 96 12/26/18 03:40 12/26/18 03:40 12/26/18 03:40 12/26/18 03:40 12/26/18 07:10 Oxygen Delivery Method Room Air Weight: 135 lb 12.876 oz Body Mass Index (BMI) 21.3 Intake and Output for Last 24 Hours 12/24/18 12/25/18 12/26/18 23:59 23:59 23:59 Intake Total 1000 / 1000 4210.0 / 4210.0 Output Total 150 / 150 300 / 300 Balance 850 / 850 3910.0 / 3910.0 Laboratory Tests Past 24 Hrs 12/25/18 12/25/18 12/25/18 10:09 10:09 10:09 WBC 4.0 L RBC 5.00 Hgb 16.1 H Hct 46.4 MCV 92.8 MCH 32.2 H MCHC 34.7 RDW Std Deviation 45.2 H RDW Coeff of Julien 13.4 Plt Count 159 MPV 10.1 Immature Gran % (Auto) 0.300 Neut % (Auto) 83.5 H Lymph % (Auto) 6.8 L [place] % (Auto) 8.8 Eos % (Auto) 0.3 Baso % (Auto) 0.3 Absolute Neuts (auto) 3.3 Absolute Lymphs (auto) 0.27 L Nucleated RBC % 0 Differential Comment COMMENT Diff Path Review May foll Sodium 120 L Potassium 4.8 Chloride 87 L Carbon Dioxide 21.0 Anion Gap 12 BUN 29 H Creatinine 2.31 H Estim Creat Clear Calc 21.25 Est GFR (MDRD) Af Amer 27 L Est GFR (MDRD) Non-Af 23 L BUN/Creatinine Ratio 12.6 Glucose 97 Serum Osmolality Calcium 10.2 H Phosphorus Magnesium Total Bilirubin 1.10 H Direct Bilirubin 0.24 AST 37 ALT 20 Alkaline Phosphatase 84 Total Protein 8.1 Albumin 3.7 Globulin 4.4 H TSH Free T4 Cortisol Urine Color Urine Clarity Urine pH Ur Specific [place] Urine Protein Urine Glucose (UA) Urine Ketones Urine Occult Blood Urine Nitrite Urine Bilirubin Urine Urobilinogen Ur Leukocyte Esterase Urine RBC Urine WBC Ur Squamous Epith Cells Ur Transition Epith Cell Urine Bacteria Hyaline Casts Urine Mucus Urine Osmolality Ur Random Sodium Urine Creatinine 12/25/18 12/25/18 12/25/18 10:09 14:20 14:20 WBC RBC Hgb Hct MCV MCH MCHC RDW Std Deviation RDW Coeff of Julien Plt Count MPV Immature Gran % (Auto) Neut % (Auto) Lymph % (Auto) [place] % (Auto) Eos % (Auto) Baso % (Auto) Absolute Neuts (auto) Absolute Lymphs (auto) Nucleated RBC % Differential Comment Diff Path Review Sodium Potassium Chloride Carbon Dioxide Anion Gap BUN Creatinine Estim Creat Clear Calc Est GFR (MDRD) Af Amer Est GFR (MDRD) Non-Af BUN/Creatinine Ratio Glucose Serum Osmolality 264 L Calcium Phosphorus Magnesium 2.4 Total Bilirubin Direct Bilirubin AST ALT Alkaline Phosphatase Total Protein Albumin Globulin TSH 79.20 H Free T4 0.62 L Cortisol 35.80 H Urine Color Urine Clarity Urine pH Ur Specific [place] Urine Protein Urine Glucose (UA) Urine Ketones Urine Occult Blood Urine Nitrite Urine Bilirubin Urine Urobilinogen Ur Leukocyte Esterase Urine RBC Urine WBC Ur Squamous Epith Cells Ur Transition Epith Cell Urine Bacteria Hyaline Casts Urine Mucus Urine Osmolality Ur Random Sodium Urine Creatinine 12/25/18 12/25/18 12/25/18 20:45 20:45 20:45 WBC RBC Hgb Hct MCV MCH MCHC RDW Std Deviation RDW Coeff of Julien Plt Count MPV Immature Gran % (Auto) Neut % (Auto) Lymph % (Auto) [place] % (Auto) Eos % (Auto) Baso % (Auto) Absolute Neuts (auto) Absolute Lymphs (auto) Nucleated RBC % Differential Comment Diff Path Review Sodium Potassium Chloride Carbon Dioxide Anion Gap BUN Creatinine Estim Creat Clear Calc Est GFR (MDRD) Af Amer Est GFR (MDRD) Non-Af BUN/Creatinine Ratio Glucose Serum Osmolality Calcium Phosphorus Magnesium Total Bilirubin Direct Bilirubin AST ALT Alkaline Phosphatase Total Protein Albumin Globulin TSH Free T4 Cortisol Urine Color Yellow Urine Clarity Clear Urine pH 6.0 Ur Specific [place] 1.015 Urine Protein 15 H Urine Glucose (UA) Normal Urine Ketones 5 H Urine Occult Blood Negative Urine Nitrite Negative Urine Bilirubin Negative Urine Urobilinogen Normal Ur Leukocyte Esterase Negative Urine RBC 0 SEEN Urine WBC 0-5 SEEN Ur Squamous Epith Cells 0-5 SEEN Ur Transition Epith Cell 0-5 SEEN Urine Bacteria 0 SEEN Hyaline Casts 0-5 SEEN Urine Mucus 0 SEEN Urine Osmolality 387 Ur Random Sodium Urine Creatinine 130.00 12/25/18 12/26/18 12/26/18 20:45 05:25 05:25 WBC 2.9 L RBC 3.44 L Hgb 11.3 L Hct 32.7 L MCV 95.1 MCH 32.8 H MCHC 34.6 RDW Std Deviation 46.8 H RDW Coeff of Julien 13.4 Plt Count 101 L MPV 10.0 Immature Gran % (Auto) Neut % (Auto) Lymph % (Auto) [place] % (Auto) Eos % (Auto) Baso % (Auto) Absolute Neuts (auto) Absolute Lymphs (auto) Nucleated RBC % Differential Comment Diff Path Review Sodium 132 L Potassium 3.4 L Chloride 105 Carbon Dioxide 18.0 L Anion Gap 9 BUN 22 H Creatinine 1.56 H Estim Creat Clear Calc 31.46 Est GFR (MDRD) Af Amer 43 L Est GFR (MDRD) Non-Af 35 L BUN/Creatinine Ratio 14.1 Glucose 74 Serum Osmolality Calcium 7.6 L Phosphorus 2.0 L Magnesium 1.9 Total Bilirubin Direct Bilirubin AST ALT Alkaline Phosphatase Total Protein Albumin Globulin TSH Free T4 Cortisol Urine Color Urine Clarity Urine pH Ur Specific [place] Urine Protein Urine Glucose (UA) Urine Ketones Urine Occult Blood Urine Nitrite Urine Bilirubin Urine Urobilinogen Ur Leukocyte Esterase Urine RBC Urine WBC Ur Squamous Epith Cells Ur Transition Epith Cell Urine Bacteria Hyaline Casts Urine Mucus Urine Osmolality Ur Random Sodium 22 Urine Creatinine Medical Necessity - Tobacco Use Smoking Status: Former smoker - quit in 2017. Smoked for 40 years, 1/2 PPD Tobacco Use: Non-smoker Assessment/Plan All Active Problems Hyponatremia (Acute) ARF (acute renal failure) (Acute) Dehydration (Acute) Diarrhea (Acute) Mass of oropharynx (Resolved) Impressions 1. Severe Hyponatremia due to dehydration and hypothyroidism. Hydrated with NS. Sodium 132 on 12/26 2. Hypothyroidism hx - non-compliant with medication since October....now severely hypothyroid. Restarted Levothyroxine at 100 mcg a day and recheck a TSH and T4 in 4 weeks. Cortisol was normal 3. hx of Tonillar CA - follows with Dr. Isabel and Dr. Evans. Had 30 radiation treatments and 2 chemo tx's and no surgery 4. Severe malnutrition/weight loss - CIB ice cream shakes BID. Dietitian consulted. 5. hx of depression - seems to be doing well off the Wellbutrin. If she should require a antidepressant would not use Wellbutrin since it suppresses appetite.....would likely choose Remeron 6. VASILE - IV fluids ordered. Check a urine for sodium and creat to calculate the FeNA. FENA was less than 1%. Creat improving with hydration 7. Hypophosphatemia - supplementation ordered 8. DVT prophylaxis with Heparin, SCD's and TEDS. Supplement the phosphorous She had persistent low BP's despite hydration so start Midodrin and recheck the lab in the AM and the orthostatics. Appreciate the recommendations from the child psychologist Code Visit Inpatient E&M: 76639 Subs Hosp L2
--- NOTE | 2018-12-26 10:24 | US_ITS ---
STUDY: RENAL ULTRASOUND - COMPLETE REASON FOR EXAM: Female, 63 years old. Acute renal failure. TECHNIQUE: Ultrasound evaluation of the kidneys was performed with real-time and static huynh-scale imaging. COMPARISON: None. FINDINGS: RIGHT KIDNEY: Normal location of the right kidney, which is normal in size. The right kidney measures 11.8 cm x 5.4 cm x 4.4 cm. There is a normal cortex of the right kidney. The renal cortex measures 1.3 cm. There is no right renal mass or cyst. There are no right renal calculi. There is no right hydronephrosis. DISTAL RIGHT URETER: There is non-visualization of the distal right ureter. There is no demonstrated right ureterovesical junction calculus. There is no demonstrated right ureteral jet. LEFT KIDNEY: Normal location of the left kidney, which is normal in size. The left kidney measures 12.3 cm x 4.7 cm x 4.7 cm. There is a normal cortex of the left kidney. The renal cortex measures 1.5 cm. There is no left renal mass or cyst. There are no left renal calculi. There is no left hydronephrosis. DISTAL LEFT URETER: There is non-visualization of the distal left ureter. There is no demonstrated left ureterovesical junction calculus. There is no demonstrated left ureteral jet. BLADDER: The distended urinary bladder has a volume of 51 ml. The bladder wall is thickened although the urinary bladder is not adequately distended. US/Kidney and Bladder IMPRESSION: Normal ultrasound of the kidneys and urinary bladder. Electronically Signed: Clark Balderas, at 15:12 EDT , Service support ,
--- NOTE | 2018-12-26 10:40 | RAD_ITS ---
STUDY: X-RAY - ABDOMEN/PELVIS REASON FOR EXAM: Female, 63 years old. Abdominal pain and constipation. TECHNIQUE: Single AP view of the abdomen / pelvis. COMPARISON: None. FINDINGS: Normal visualized lung bases. There is an unremarkable bowel gas pattern. The visualized liver, spleen and kidneys are grossly normal in size and morphology. There are calcified phleboliths in the pelvis. Vascular calcification. There are diffuse degenerative changes of the visualized lumbar spine. Mild levoscoliosis. RAD/Abdomen Single View IMPRESSION: Nonspecific bowel gas pattern. Electronically Signed: Clark Balderas, at 13:12 EDT , Service support ,
[2018-12-26 11:29] LABS: Albumin, Serum 2.2 g/dL (3.2-5.0)
[2018-12-26] MEDS: Levothyroxine 25 MCG TABLET PO (11:44)
[2018-12-26 12:20] LABS: Pathologist Review Reviewed
--- NOTE | 2018-12-26 14:45 | CHAPLAIN ---
Type of Pastoral Visit _x__ Initial Visit ___ Follow-up Visit ___ On-call Visit ___ General Patient Visit ___ Spiritual Assessment ___ Family Conference ___ Bereavement ___ Rapid Response ___ Code Blue ___ Other (describe below) Pastoral Care Referral From _x__ Patient ___ Family ___ Nurse ___ Physician ___ [place]yer ___ Boat Loader Helper ___ Other (describe below) Sacrament/Intervention _x__ Active listening ___ Anointing ___ Scientology ___ Bereavement ___ Communion _x__ Shawna exploration ___ _x__ Life review _x__ Prayer ___ Reconciliation ___ Sacrament of Sick _x__ Supportive presence ___ Wedding ___ Other (describe below) Pastoral Comments long visit; entered room and then joined in the conversation as well
[2018-12-26] MEDS: Midodrine HCl 5 MG Tablet 2.5 MG PO ×2 (16:03→21:14)
[2018-12-26] MEDS: 0.9% Normal Saline 1,000 ML 100 ML IV (16:35)
[2018-12-26] MEDS: Ondansetron 4 MG/2 ML Vial IV (17:20)
[2018-12-26] MEDS: Atorvastatin Calcium 10 MG Tablet PO (21:14)
[2018-12-27] VITALS (7 sets, daily range): BP systolic 73–96; BP diastolic 42–61; PULSE 56–61; RESP 16; TEMP 36.4–36.9; O2SAT 98–99
[2018-12-27] MEDS: 0.9% Normal Saline 1,000 ML 100 ML IV ×2 (01:50→12:19)
[2018-12-27] MEDS: Midodrine HCl 5 MG Tablet 2.5 MG PO ×2 (06:43→13:50)
[2018-12-27] MEDS: Levothyroxine 100 MCG Tablet PO (06:43)
[2018-12-27 07:00] LABS: Absolute Lymphocyte Count 0.28 X10^3/uL (0.83-4.51); Absolute Neutrophil Count 1.9 X10^3/uL (2.0-7.7); Basophil# 0.01 X10^3/uL; Basophil% 0.4 % (0-1); Eosinophil# 0.05 X10^3/uL; Hematocrit 33.8 % (37-47); Hemoglobin 11.4 g/dL (12.0-15.0); Lymphocyte # 0.28 X10^3/ul (4.0); Lymphocyte % 11.2 % (19-41); Mean Corp Hgb Conc 33.7 g/dL (32-36); Mean Corpuscular Hgb 32.9 pg (27.0-32.0); Mean Corpuscular Volume 97.7 fL (81-99); Mean Platelet Vol. 9.6 fl (6.2-12.0); NRBC Flagged by Analyzer 0 % (0-5); Neutrophil # 1.94 X10^3/uL (2.7-7.7); Neutrophil % 77.6 % (47-70); POSITIVE DIFFERENTIAL YES; Platelet Count 89 K/mm3 (150-450); RBC Distribution Width CV 13.7 % (11.6-14.6); RBC Distribution Width SD 48.5 fl (35.1-43.9); Red Blood Count 3.46 M/mm3 (4.2-5.4); White Blood Count 2.5 K/mm3 (4.4-11.0)
[2018-12-27 07:03] LABS: Differential Indicated SCAN CRITERIA MET
[2018-12-27 07:14] LABS: Anion Gap 5 (5-15); BUN 12 mg/dL (7-18); BUN/Creat Ratio 8.8 RATIO (10-20); Calcium,Total 7.5 mg/dL (8.5-10.1); Chloride 108 mmol/L (98-107); Creatinine, Serum 1.37 mg/dL (0.55-1.02); EST Glomerular Filtration Rate 41 mL/min (>60); Est Glom Filt Rate - Afr Amer 50 mL/min (>60); Estimated Creatinine Clearance 35.82 ml/min; Glucose 72 mg/dL (74-106); Magnesium 1.5 mg/dL (1.6-2.6); Potassium 3.4 mmol/L (3.5-5.1); Sodium Level 133 mmol/L (136-145)
[2018-12-27] MEDS: Magnesium Sulfate 4gm/100mL 4 GM/100 ML IV.SOLN. IV (10:50)
[2018-12-27] MEDS: Famotidine 20 MG Tablet PO (10:55)
[2018-12-27] MEDS: Potassium Chloride 10mEq/100mL 10 MEQ/100 ML IV.SOLN. 100 MEQ IV BOLUS ×2 (11:03→12:11)
--- NOTE | 2018-12-27 11:31 | DCINST_ITS ---
- Discharge Diagnoses Current Active Problems: Current Active and Chronic Problems Hyponatremia (Acute) ARF (acute renal failure) (Acute) Dehydration (Acute) Diarrhea (Acute) - due to large amount retained stool/obstipation You will use the following diet at home:: High fiber, Other - make sure to drink a lot of water to keep your stool soft Your food should be the consistency of: Regular Your liquids should be the consistency of: Regular/Thin, Pudding Thick Discharge Activity: Return to Normal Activity Call your doctor if you observe: Fever of 101 or Higher, Shortness of breath, Dizziness, Fainting spells, Swelling in the ankles, Chest pain Instructions: Hypothyroidism and Myxedema Additional Instructions: If you do not take anything else you need to take the thyroid medication. The thyroid became severely underactive when you stopped your medications. this lead to severe constipation, fatigue, very low sodium, hair loss, low blodd pressure etc. It is going to take a few weeks for the thyroid medication to help with the blood pressure. I have had to start you on a medication called Midodrin to keep the blood pressure up to provide adequate blood flow to the kidneys. You were in kidney failure when you came to the hospital and your kidneys are doing better but, are not back to baseline. You will take the Midodrin 3 times a day......for the next 2 weeks and you can discontinue. If you start to get dizzy or lightheaded off the Midodrin call your family doctor for advice. Do not go more than 3 days without a BM.......if you have to take a laxative. Pending Tests on Discharge: none Allergies/Adverse Reactions: Allergies morphine Adverse Reaction (Verified 12/25/18 09:23) Vomiting Medications to take at Discharge Acetaminophen [Tylenol Tablet] 650 mg PO Q6H PRN PRN tablet 12/27/18 Levothyroxine [Synthroid] 100 mcg PO DAILY@0600 #30 tab 12/27/18 Lovastatin 40 mg PO DAILY #30 tab 12/27/18 Midodrine HCl [Proamatine] 2.5 mg PO TID #42 tab 12/27/18 Polyethylene Glycol 3350 [Miralax] 17 gm PO BID #30 packet 12/27/18 The following prescriptions were given: Lovastatin 40 mg PO DAILY #30 tab Transmission Status: Pending to [facility] Polyethylene Glycol 3350 [Miralax] 17 gm PO BID #30 packet Transmission Status: Pending to [facility] Midodrine HCl [Proamatine] 2.5 mg PO TID #42 tab Transmission Status: Pending to [facility] Levothyroxine [Synthroid] 100 mcg PO DAILY@0600 #30 tab Transmission Status: Pending to [facility] Primary Care Physician: Leroy Kidd MD [Primary Care Provider] - Please follow up with your Primary Care Physician in: 2 weeks Test Results: Test results from this visit will be discussed in further detail at your follow- up appointment, if applicable. Please Follow Up With: Jaiden Isabel DO When: as previously arranged Proposed Discharge Date: 12/27/18
--- NOTE | 2018-12-27 11:41 | DS.PCM_ITS ---
Discharge Date and Diagnosis - Problem List Patient Problems: Active and Suspected Problems Thrombocytopenia (Acute) Hypokalemia (Acute) Hypomagnesemia (Acute) Hypotension (Acute) Hyponatremia (Acute) ARF (acute renal failure) (Acute) Dehydration (Acute) Diarrhea (Acute) Date of Admission: 12/25/18 Date of Discharge: 12/27/18 - Primary Discharge Diagnosis Active and Suspected Problems Hyponatremia (Acute) ARF (acute renal failure) (Acute) Dehydration (Acute) Thrombocytopenia (Acute) likely due to Heparin for DVT prophylaxis Hypokalemia (Acute) Hypomagnesemia (Acute) Hypotension with bradycardia due to severe hypothyroidism due to medication non- compliance (Acute) Diarrhea (Acute) - due to liquid stool coming around a fecal impaction Obstipation with fecal impaction - Secondary Discharge Diagnosis Chronic Problems Obstipation (Chronic) Noncompliance with medication regimen (Chronic) Leukopenia (Chronic) 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 Evans Hypothyroid (Chronic) Depression (Chronic) Hospital Course and Treatment Imaging Results: Clinical Impression(s) from Imaging Studies Renal Ultrasound 12/26/18 10:24 IMPRESSION: Normal ultrasound of the kidneys and urinary bladder. Electronically Signed: Clark Balderas, at 15:12 EDT , Service support , KUB X-Ray 12/26/18 10:40 IMPRESSION: Nonspecific bowel gas pattern. Electronically Signed: Clark Balderas, at 13:12 EDT , Service support , Laboratory Results - last 24 hr 12/25/18 12/27/18 12/27/18 10:09 06:40 06:40 WBC 2.5 L RBC 3.46 L Hgb 11.4 L Hct 33.8 L MCV 97.7 MCH 32.9 H MCHC 33.7 RDW Std Deviation 48.5 H RDW Coeff of Julien 13.7 Plt Count 89 L MPV 9.6 Immature Gran % (Auto) 0.800 Neut % (Auto) 77.6 H Lymph % (Auto) 11.2 L Laporte % (Auto) 8.0 Eos % (Auto) 2.0 Baso % (Auto) 0.4 Absolute Neuts (auto) 1.9 L Absolute Lymphs (auto) 0.28 L Nucleated RBC % 0 Diff Path Review Reviewed August Sodium 133 L Potassium 3.4 L Chloride 108 H Carbon Dioxide 20.0 L Anion Gap 5 BUN 12 Creatinine 1.37 H Estim Creat Clear Calc 35.82 Est GFR (MDRD) Af Amer 50 L Est GFR (MDRD) Non-Af 41 L BUN/Creatinine Ratio 8.8 L Glucose 72 L Calcium 7.5 L Phosphorus 3.0 Magnesium 1.5 L none Operations: None Procedures: None Summary of Care Provided: The patient is a 63 year old F with a past medical history of tonsillar cancer treated by Dr. Isabel and Dr. Evans, hypothyroidism, former smoking hx (quit in 2016) and depression who presented to the ED at [facility] on 12/25/18 c/o diarrhea after laxatives and not feeling well. She took laxatives recently because she had not had a BM in 2 weeks. She quit taking all her medications iOctober because she could not taste anything after the chemo and radiation and she lost her appetite. She had been experiencing weakness, loss of appetite, hair loss, constipation, always feeling cold and she was chronically fatigued. She had been losing weight because she had not been eating. She denied abdominal pain, nausea/vomiting, fevers/sweats/chills, cough and shortness of breath. Vital signs at presentation to the emergency room were temperature 97.5, pulse rate 79, blood pressure 91/67, respiratory rate 14 and she was 96% saturated on room air. CBC was remarkable for a low white blood cell count of 4.0, hemoglobin of 16.1 with normochromic normocytic indices and a normal platelet count. Sodium was low at 120 and the chloride was 87. BUN was 29 and the creatinine was 2.31. Creatinine in February 2019 was 0.75. Calcium was increased at 10.2 and the LFTs were unremarkable. TSH was 79.2 and the free T4 was low at 0.62. Cortisol was appropriately increased given bradycardia and hypotension due to severe hypothyroidism. She received 1 liter of NS in the ED. She was admitted to the hospital with a dx of severe hyponatremia due to hypothyroidism and to dehydration. IV fluids were ordered and she was restarted on Levothyroxine. On PE she had a fecal impaction and was digitally disimpacted and then given a Fleets enema and Miralax 17 GM was ordered BID. BP was consistently low with a MAP < 65 despite IV fluids with multiple boluses. She was started on Midodrin and the BP on the day of DC was 96/61 sitting up in a chair. She denied lightheadedness. Heart rate remains in the high 50s and low 60s. On the date of discharge the sodium was stable at 133. Potassium was mildly decreased at 3.4 and the magnesium was decreased at 1.5. Calcium corrected for hypoalbuminemia was within normal limits. Creatinine had decreased to 1.37 with hydration and midodrine. She refused to take oral potassium and IV potassium supplementation was ordered. She was also given magnesium supplementation intravenously. She refused the MiraLAX. She was discharged home with prescriptions for MiraLAX, levothyroxine, midodrine and lovastatin. She was instructed that she must take the Levothyroxine even if she does not take any other medications. She was also instructed to keep well hydrated. If she does not have a BM for 3 days she will take a laxative. She will follow up with Dr. Kidd in 1-2 weeks and should have repeat BMP and CBC done then. She was given enough Midodrin for 2 weeks and should not need this medication after that time. If she gets lightheaded after discontinuing Midodrin she will call Dr. Kidd. she should have a TSH and T4 checked in 4-6 weeks. GENERAL: alert, oriented X 3, Cooperative, NAD, Sitting in a recliner chair at the bedside ORAL: moist mucosa, no mucosal lesions NECK: No JVD, supple, trachea midline LUNGS: CTA, symmetric chest expansion HEART: RRR, Normal S1 and S2, no rub, no gallop ABDOMEN: soft, NT, ND, BS present, no guarding with palpation EXTREMITIES: no edema, no cyanosis, no calf tenderness, 3/3 radial pulses SKIN: No rashes, no breakdown NEUROLOGIC: no focal neurologic deficits PSYCH: appropriate, normal affect, pleasant This note was generated with [email or web address] software. It may contain incorrect words, spelling, and punctuation that were not noted in checking the note before signing. Patient Problems: Active and Suspected Problems Thrombocytopenia (Acute) Hypokalemia (Acute) Hypomagnesemia (Acute) Hypotension (Acute) Hyponatremia (Acute) ARF (acute renal failure) (Acute) Dehydration (Acute) Diarrhea (Acute) - Physical Exam Vital Signs Temp Pulse Resp BP Pulse Ox 97.9 F 56 L 16 96/61 98 12/27/18 07:30 12/27/18 07:30 12/27/18 07:30 12/27/18 07:30 12/27/18 11:27 Oxygen Delivery Method Room Air Weight: 135 lb 12.876 oz Body Mass Index (BMI) 21.3 Orthostatic Vital Signs Start: 12/26/18 11:25 Freq: q24h Status: Active Protocol: Activity Type Activity Date Activity User E-Sign Co-Sign Detail Recorded Client Recorded Date Recorded By Document 12/26/18 11:25 ESTEFANY [id number] 12/26/18 11:37 ESTEFANY 12/26/18 11:25 Orthostatic Vitals Standing -Blood Pressure (90/60-120/80 mm Hg) 72/50 L -Extremity Use Right Arm -Pulse Rate (60-100 beats/min) 75 Sitting -Blood Pressure (90/60-120/80 mm Hg) 81/55 L -Extremity Use Right Arm -Pulse Rate (60-100 beats/min) 66 Lying -Blood Pressure (90/60-120/80 mm Hg) 83/53 L -Extremity Use Right Arm -Pulse Rate (60-100 beats/min) 59 L Intake and Output for Last 24 Hours 12/25/18 12/26/18 12/27/18 23:59 23:59 23:59 Intake Total 1000 / 1000 6470.0 / 6570.0 1125.00 / 1125.00 Output Total 150 / 150 400 / 400 Balance 850 / 850 6070.0 / 6170.0 1125.00 / 1125.00 Microbiology Past 72 Hours 12/25/18 20:45 Urine Culture - Preliminary Urine Catheter - Rodrigez Culture exhibits no growth. Laboratory Tests Past 24 Hrs 12/25/18 12/27/18 12/27/18 10:09 06:40 06:40 WBC 2.5 L RBC 3.46 L Hgb 11.4 L Hct 33.8 L MCV 97.7 MCH 32.9 H MCHC 33.7 RDW Std Deviation 48.5 H RDW Coeff of Julien 13.7 Plt Count 89 L MPV 9.6 Immature Gran % (Auto) 0.800 Neut % (Auto) 77.6 H Lymph % (Auto) 11.2 L Laporte % (Auto) 8.0 Eos % (Auto) 2.0 Baso % (Auto) 0.4 Absolute Neuts (auto) 1.9 L Absolute Lymphs (auto) 0.28 L Nucleated RBC % 0 Diff Path Review Reviewed August foll Sodium 133 L Potassium 3.4 L Chloride 108 H Carbon Dioxide 20.0 L Anion Gap 5 BUN 12 Creatinine 1.37 H Estim Creat Clear Calc 35.82 Est GFR (MDRD) Af Amer 50 L Est GFR (MDRD) Non-Af 41 L BUN/Creatinine Ratio 8.8 L Glucose 72 L Calcium 7.5 L Phosphorus 3.0 Magnesium 1.5 L Discharge Activity: Return to Normal Activity Call your doctor if you observe: Fever of 101 or Higher, Shortness of breath, Dizziness, Fainting spells, Swelling in the ankles, Chest pain Home Medications: Medications to take at Discharge Acetaminophen [Tylenol Tablet] 650 mg PO Q6H PRN PRN tab 12/27/18 Levothyroxine [Synthroid] 100 mcg PO DAILY@0600 #30 tab 12/27/18 Lovastatin 40 mg PO DAILY #30 tab 12/27/18 Midodrine HCl [Proamatine] 2.5 mg PO TID #42 tab 12/27/18 Polyethylene Glycol 3350 [Miralax] 17 gm PO BID #30 packet 12/27/18 Following Prescrptions Were Given to Patient: Lovastatin 40 mg PO DAILY #30 tab Transmission Status: Received by [employer] Polyethylene Glycol 3350 [Miralax] 17 gm PO BID #30 packet Transmission Status: Received by [employer] Midodrine HCl [Proamatine] 2.5 mg PO TID #42 tab Transmission Status: Received by [facility] Levothyroxine [Synthroid] 100 mcg PO DAILY@0600 #30 tab Transmission Status: Received by [facility] Primary Care Physician: Leroy Kidd MD [Primary Care Provider] - Please follow up with your Primary Care Physician in: 2 weeks Please Follow Up With: Jaiden Isabel, DO When: as previously arranged Patient Instructions: Hypothyroidism and Myxedema Minutes spent on discharge:: 35 Patient Condition:: Good Medical Necessity - Tobacco Use Smoking Status: Former smoker - quit in 2017. Smoked for 40 years, 1/2 PPD Tobacco Use: Non-smoker Meaningful Use Info Meaningful Use Diagnoses (Choose all that apply): None applicable Code Visit Inpatient E&M: 13992 Disch Hosp
[2018-12-29 12:18] LABS: Pathologist Review Reviewed
== END 2018-12-27 14:38 | disposition home or self-care (01) | DRG 640 ==
LOC: ED 12:19 → MS3 12:32
PROVIDERS: Admitting Provider Internal Medicine; Emergency Provider Emergency Medicine; Family Provider Family Medicine; PCP Family Medicine; Referring Provider Internal Medicine; Visit Provider Internal Medicine
DX: E87.1 Hypo-osmolality and hyponatremia (principal); E43 Unspecified severe protein-calorie malnutrition; N17.9 Acute kidney failure, unspecified; E86.0 Dehydration; E03.9 Hypothyroidism, unspecified; E83.42 Hypomagnesemia; E83.39 Other disorders of phosphorus metabolism; E87.6 Hypokalemia; D69.6 Thrombocytopenia, unspecified; Z68.21 Body mass index [BMI] 21.0-21.9, adult; Z92.3 Personal history of irradiation; Z92.21 Personal history of antineoplastic chemotherapy; Z87.891 Personal history of nicotine dependence; Z85.819 Personal history of malignant neoplasm of unspecified site of lip, oral cavity, and pharynx; K56.41 Fecal impaction; I95.9 Hypotension, unspecified
CPT/HCPCS: 36415; 74018; 76770; 80048; 80076; 81001; 82040; 82533; 82570; 83735; 83930; 83935; 84100; 84300; 84439; 84443; 85025; 85027; 87086; 97162; 97166; 97802; 99284; J7030; J7050; J2405

== ENCOUNTER → 2022-02-15 | Outpatient (CLI) | payer MEDICARE, BC, SELFPAY ==
--- NOTE | 2022-02-15 13:03 | BI_ITS ---
MAMMOGRAPHY - BILATERAL SCREENING REASON FOR EXAM: Female, 66 years old. Routine annual screening examination. PERTINENT HISTORY: Aunt with breast cancer. TECHNIQUE: Digital bilateral breast candelaria (3D mammographic acquisition) in the CC and MLO projections. 2-D mediolateral oblique (MLO) and craniocaudad (CC) views of both breasts were obtained. CAD: Full Field Digital Mammography with Computer Added Detection was performed. COMPARISON: Comparison is made with prior study dated 06/05/2017. FINDINGS: Breast Composition: There are scattered areas of fibroglandular density. There are no dominant masses or suspicious calcifications. No other significant abnormalities are identified. There has been no significant change since the prior study. BI/SCRN MAMM (CAD)W/CANDELARIA BILAT IMPRESSION: Stable bilateral screening mammogram. Yearly follow-up mammogram recommended. (A) ASSESSMENT CATEGORY: BIRADS Category 1: Negative. A letter regarding these results will be sent to the patient by the facility within 30 days. Approximately 10% of breast cancers are not detected by mammography. A normal mammogram should not delay biopsy of a clinically suspicious abnormality. [id number] Electronically Signed: Clark Balderas MD at 14:07 EDT ,
--- NOTE | 2022-02-15 13:10 | BD_ITS ---
STUDY: DUAL ENERGY X-RAY ABSORPTIOMETRY / DXA REASON FOR EXAM: Female, 66 years old. Z780 TECHNIQUE: Bone Mineral Density (BMD) measurements of lumbar spine and bilateral hips were obtained. COMPARISON: None. FINDINGS: Lumbar Spine (L1-L4): g/cm2 (0.915) / T-score (-1.2) / Z-score (0.7) Findings are suggestive of osteopenia with a low fracture risk. Left Femur Total: g/cm2 (0.433) / T-score (-4.2) / Z-score (-2.8) Left Femoral Neck: g/cm2 (0.526) / T-score (-2.9) / Z-score (-1.2) Right Femur Total: g/cm2 (0.486) / T-score (-3.7) / Z-score (-2.4) Right Femoral Neck: g/cm2 (0.516) / T-score (-3.0) / Z-score (-1.3) BD/Dexa Bone Density Study IMPRESSION: The patient is considered osteoporotic as outlined below according to World Rod Organization (WHO) criteria with a high fracture risk. Reference Information: The T-score is the number of standard deviations above or below the standard which is normal for young adults at their peak bone mineral density. The World Health Organization (WHO) interprets the T-scores as follows: Above -1 Normal bone density Between -1 and -2.5 Osteopenia Equal to / or below -2.5 Osteoporosis As a practical clinical guideline, osteopenia may be graded as follows: Mild -1 through -1.5 Moderate -1.6 through -2.0 Severe -2.1 through -2.4 The Z-score is the number of standard deviations above or below age-matched controls. A Z-score of less than -1.5 would be considered abnormal. References: 1. NIH Osteoporosis and Related Bone Diseases www osteo.org 2. International Society for Clinical Densitometry www iscd.org 3. National Osteoporosis Foundation www nof.org Electronically Signed: Clark Balderas MD at 11:00 EDT ,
== END | disposition home or self-care (01) ==
PROVIDERS: PCP Family Medicine; Visit Provider Family Medicine
DX: M81.0 Age-related osteoporosis without current pathological fracture (principal); Z78.0 Asymptomatic menopausal state; Z12.31 Encounter for screening mammogram for malignant neoplasm of breast; Z80.3 Family history of malignant neoplasm of breast
CPT/HCPCS: 77063; 77067; 77080

== ENCOUNTER 2022-03-28 06:12 | Day surgery (SDC) | payer MEDICARE, BC, SELFPAY ==
[2022-03-28 06:41] VITALS: BP 115/63; PULSE 81; RESP 16; TEMP 36.4; O2SAT 97; BMI 19.6
[2022-03-28] MEDS: Lactated Ringers 1,000 ML 15 ML IV (06:48)
--- NOTE | 2022-03-28 07:30 | COLBX_PTH ---
PATIENT: NUBIA CORNELL LOC: EN U#:[id number] AGE/SX: 66/F ROOM: RE03/28/[address]: Dr. Es Abad MD : 1955 BED: DIS: 03/28/2022 SPEC #: [id number] RECD: 03/28/22 12:49 STATUS: MICK JENNIFER #: [id number] JM: 03/28/22 07:[address]: sE Abad DEPT: SURGICAL PATHOLOGY RECD BY: Nehal Zaman ENTERED: 03/29/22 08:55 SP TYPE: COLON BX OTHR DR: Dr. Leroy Kidd MD Tissues: A - Ascending colon B - COLON BIOPSY C - Transverse colon D - Transverse colon E - Descending colon Procedures: Surgery Specimen Level IV HEADER OPERATION: Colonoscopy with polypectomy with snare, hot snare and biopsy (MAC) PRE-OP DIAGNOSIS: Positive Cologuard test TISSUE SUBMITTED: A ? Ascending colon polyp biopsy, B ? Hepatic flexure polyp biopsy (x2), C ? Proximal transverse colon polyp biopsy (x3), D ? Distal transverse colon polyp biopsy, E - Descending colon polyp biopsy (x2) MICROSCOPIC DIAGNOSIS A. Ascending colon polyp, biopsy: Fragments of tubular adenoma. B. Colonic polyp at hepatic flexure, biopsy: Fragments of tubular adenoma. C. Proximal transverse colon polyp, biopsy: Fragments of tubular adenoma. D. Distal transverse colon polyp, biopsy: Fragments of tubular adenoma. E. Descending colon polyp, biopsy: Fragments of tubular adenoma. AM:katie 03/30/2022 MICROSCOPIC DESCRIPTION Slides are reviewed. GROSS DESCRIPTION A - Received in fixative is one container labeled with the patient's name and designated ascending colon polyp biopsy. The specimen consists of multiple irregular fragments of light cadena soft tissue that in aggregate measure 0.6 x 0.5 x 0.1 cm. The specimen is totally submitted in one cassette. B - Received in fixative is one container labeled with the patient's name and designated hepatic flexure polyp biopsy x2. The specimen consists of two irregular fragments of light cadena soft tissue that in aggregate measure 0.7 x 0.4 x 0.1 cm. The specimen is totally submitted in one cassette. C - Received in fixative is one container labeled with the patient's name and designated proximal transverse colon polyp biopsy x3. The specimen consists of multiple irregular fragments of light cadena soft tissue that in aggregate measure 1.5 x 0.5 x 0.1 cm. The specimen is totally submitted in one cassette. D - Received in fixative is one container labeled with the patient's name and designated distal transverse colon polyp biopsy. The specimen consists of two irregular fragments of light cadena soft tissue that in aggregate measure 0.6 x 0.3 x 0.1 cm. The specimen is totally submitted in one cassette. E - Received in fixative is one container labeled with the patient's name and designated descending colon polyp biopsy x2. The specimen consists of multiple irregular fragments of light cadena soft tissue that in aggregate measure 1.5 x 0.2 x 0.1 cm. The specimen is totally submitted in one cassette. / SJ:rg 03/29/2022 TC:5 CPT: 39890 x5
--- NOTE | 2022-03-28 07:35 | HP.PCM_ITS ---
History and Physical Date of Admission: 03/28/22 Date of Service:? 03/01/22 MR#: [id number] Acct: [id number] Name:NUBIA DOBSON Rep #: [id number] : 1955 ? ? Provider: Dr. Es Abad MD Age/Sex:? 66/F ? ? Location: [facility] Status: Signed Intake Vital Signs ? 03/01/2209:02 Height 5 ft 1 in Weight: 123 lb 6 oz BMI 23.3 BP 137/77 H Blood Pressure Location Rt brachial Position Sitting Respiration 18 Pulse 61 Pulse Source Monitor Temp 97.1 F L Temp Source Temporal Pulse Oximetry (%) 98 Oxygen Delivery Method room air Intake Visit Reasons:?CSCOPE POSITIVE COLOGUARD Chief Complaint: Positive Cologuard Optometry Assistant Required: No Is patient in pain?: No Allergies morphine Adverse Reaction (Verified 03/01/22 09:03) Vomiting Medications acetaminophen 325 mg tablet 650 mg PO Q6H PRN PRN Mild Pain (1-3)/Temp > 100.7 F 12/27/18 [Rx Confirmed 03/01/22] lovastatin 40 mg tablet 40 mg PO DAILY CHOLESTEROL #30 tabs 12/27/18 [Rx Confirmed 03/01/22] levothyroxine 100 mcg tablet 88 mcg PO DAILY@0600 03/01/22 [History] potassium bicarbonate-citric acid 25 mEq effervescent tablet (Effer-K) 25 meq PO BID 03/01/22 [History Confirmed 03/01/22] PFSH Medical History?(Updated 03/01/22 @ 09:[address] Es Abad MD) ARF (acute renal failure) Dehydration Depression Diarrhea Hypokalemia Hypomagnesemia Hyponatremia Hypotension Hypothyroid Leukopenia Noncompliance with medication regimen Obstipation Positive colorectal cancer screening using Cologuard test Thrombocytopenia Tonsillar cancer Surgical History?(Updated 03/01/22 @ 09:[address] Es Abad MD) History of appendectomy History of History of tonsillectomy Family History?(Updated 03/01/22 @ 08:58 by Ramya Espinosa) Mother Cancer ?? ? Lung CancerFather Cancer ?? ? Brain cancer Social History?(Updated 03/01/22 @ 09:02 by Ramya S Espinosa) Smoking Status:? Current every day smoker (quit in 2017.? Smoked for 40 years, 1/2 PPD) tobacco type: cigarettes alcohol intake:? never substance use type:? does not use HPI HPI HPI: Six 6-year-old female presents due to positive Cologuard for diagnostic colonoscopy.? Patient's last colonoscopy was about 15 years ago?and patient states she did have benign polyps at that time.? Patient initially went because she had some blood in her stool at that time denies having any blood in her stool currently has bowel movements daily.? Patient denies any chronic abdominal pain/nausea/vomiting/reflux.? Patient denies any family history of colon cancer. ROS General General: No weight change, appetite, fatigue, colon cancer or breast cancer HEENT HEENT: Yes eye surgery; No difficulty swallowing, eye injury, swollen glands or hoarseness Endo Endocrine: No thyroid disease, diabetes mellitus, thyroid cancer, Hair loss, heat intolerance or cold intolerance Skin Skin: No rash or changing moles Musc Musculoskeletal: Yes back problems and arthritis; No rheumatoid arthritis, gout or joint pain Cardio Cardiovascular: No murmur, pacemaker, heart disease, atrial fibrillation, high blood pressure, heart attack, heart stent, palpitations, shortness of breat with exertion or chest pain Psych Psychiatric: Yes depression and anxiety; No hearing voices Resp Respiratory: No shortness of breath, No sleep apnea, No cough, No COPD, No asthma, No emphysema and No wheezing Gastro Gastrointestinal: No abdominal pain, No nausea or vomiting, No diarrhea, No constipation, No blood in stool, No acid reflux, No hemorrhoids, No ulcers, No gallbladder problem and No black,tarry stools Corey Hematologic: No blood thinners, No blood disorders, No bleeding, No anemia and No blood clots Neuro Neurologic: No numbness and No tingling Exam Const General: cooperative, healthy appearing and no acute distress [facility] Head: normal to inspection Resp Effort & Inspection: normal respiratory effort Cardio Rate: regular rate GI Inspection: non-distended Palpation: soft, no guarding and nontender Skin General: no rashes or lesions noted Neuro General: patient oriented x3 Extrem General: no clubbing, cyanosis or edema Psych Affect: normal affect Assessment and Plan Assessment and Plan (1) Positive colorectal cancer screening using Cologuard test: ?Status:?Acute Plan Discussed with patient that due to her history of polyps she is not a candidate for Cologuard as it is also supposed to detect polyps as well.? And with a history of polyps we are aware that patient is a polyp former so likely her Cologuard would always be positive. I have discussed the above with the patient. I have offered the patient colonoscopy for evaluation. I have explained the risks/benefits of the procedure and described the procedure.? I have discussed the risks with the patient, including but not limited to:? infection, bleeding, perforation of the GI tract requiring emergency surgery, inability to complete the procedure, injury to any internal organs, complications of anesthesia, etc. - the patient understands and agrees t o proceed. I have answered all the patient's questions to the patient's satisfaction and the patient has no further questions. The patient has been given instructions for the colon cleansing preparation.? 1 day of clears, MiraLAX Dulcolax split prep Es Abad M.D. Pager: [phone] [facility] [address] [place] [address], [address] [place] [id number] Office: [phone] Coding Level of Care Code Off vis,new,level 3 Diagnoses Positive colorectal cancer screening using Cologuard test? R19.5 03/01/22 0914 <Electronically signed by Es Abad MD> Date Es Abad MD
[2022-03-28 08:39] VITALS: BP 115/63; BP 87/54; PULSE 89; RESP 18; TEMP 36.8; O2SAT 93
[2022-03-28 08:40] VITALS: BP 104/47; BP 115/63; PULSE 91; RESP 18; O2SAT 93
--- NOTE | 2022-03-28 08:40 | OP.CCLET_ITS ---
03/28/2022 Leroy Kidd Re : Colonoscopy procedure for Sanaz Srinivasan Dear Bernabe This procedure was performed on Monday, March 28, 2022. My impressions and recommendations are as follows: Impressions : - Four 3 to 6 mm polyps in the proximal transverse colon, at the hepatic flexure and in the ascending colon, removed with a hot snare. Resected and retrieved. - Five less than 5 mm polyps in the descending colon, in the proximal transverse colon and in the distal transverse colon, removed with a cold biopsy forceps. Resected and retrieved. - Diverticulosis in the sigmoid colon. Recommendations : - Discharge patient to home. - Resume previous diet. - Continue present medications. - Await pathology results. - Repeat colonoscopy in 3 years for surveillance based on pathology results. My findings are described in the full procedure note, which is enclosed. If I can be of further assistance, please feel free to contact me at Doctor phone number(s): , Work: . Sincerely, MD Es Orozco MD 03/28/2022 8:40:03 AM This report has been signed electronically.
--- NOTE | 2022-03-28 08:40 | OP.COLON_ITS ---
Patient Name: Sanaz Srinivasan Procedure Date: 03/28/2022 7:42 AM Date of : 1955 Age: 66 Procedure: Colonoscopy Indications: Positive Cologuard test Providers: Es Abad MD Referring MD: Leroy Kidd Medicines: Monitored Anesthesia Care Patient Profile: This is a 66 year old female. Last Colonoscopy: more than 10 years ago. Complications: No immediate complications. Procedure: Pre-Anesthesia Assessment: - Prior to the procedure, a History and Physical was performed, and patient medications and allergies were reviewed. The patient's tolerance of previous anesthesia was also reviewed. The risks and benefits of the procedure and the sedation options and risks were discussed with the patient. All questions were answered, and informed consent was obtained. Prior Anticoagulants: The patient has taken no previous anticoagulant or antiplatelet agents. ASA Grade Assessment: Per anesthesia. After reviewing the risks and benefits, the patient was deemed in satisfactory condition to undergo the procedure. After I obtained informed consent, the scope was passed under direct vision. Throughout the procedure, the patient's blood pressure, pulse, and oxygen saturations were monitored continuously. The Colonoscope was introduced through the anus and advanced to the cecum, identified by appendiceal orifice and ileocecal valve. The colonoscopy was performed without difficulty. The patient tolerated the procedure well. The quality of the bowel preparation was good. Scope In: 7:47:23 AM Scope Withdrawal Time 0 hours 35 minutes 45 seconds Scope Out: 8:32:30 AM Total Procedure Duration Time 0 hours 45 minutes 7 seconds Findings: The perianal and digital rectal examinations were normal. Four semi-pedunculated polyps were found in the proximal transverse colon, hepatic flexure and ascending colon. The polyps were 3 to 6 mm in size. These polyps were removed with a hot snare. Resection and retrieval were complete. Five sessile polyps were found in the descending colon, proximal transverse colon and distal transverse colon. The polyps were less than 5 mm in size. These polyps were removed with a cold biopsy forceps. Resection and retrieval were complete. Scattered medium-mouthed diverticula were found in the sigmoid colon. Impression: - Four 3 to 6 mm polyps in the proximal transverse colon, at the hepatic flexure and in the ascending colon, removed with a hot snare. Resected and retrieved. - Five less than 5 mm polyps in the descending colon, in the proximal transverse colon and in the distal transverse colon, removed with a cold biopsy forceps. Resected and retrieved. - Diverticulosis in the sigmoid colon. Recommendation: - Discharge patient to home. - Resume previous diet. - Continue present medications. - Await pathology results. - Repeat colonoscopy in 3 years for surveillance based on pathology results. Procedure Code(s): --- Professional --- 46384, Colonoscopy, flexible; with removal of tumor(s), polyp(s), or other lesion(s) by snare technique 88394, 59, Colonoscopy, flexible; with biopsy, single or multiple Diagnosis Code(s): --- Professional --- D12.2, Benign neoplasm of ascending colon D12.4, Benign neoplasm of descending colon D12.3, Benign neoplasm of transverse colon (hepatic flexure or splenic flexure) R19.5, Other fecal abnormalities K57.30, Diverticulosis of large intestine without perforation or abscess without bleeding CPT copyright 2017 [employer]. All rights reserved. The codes documented in this report are preliminary and upon medical billing coder review may be revised to meet current compliance requirements. MD Es rOozco MD 03/28/2022 8:40:03 AM This report has been signed electronically. Number of Addenda: 0 Note Initiated On: 03/28/2022 7:42 AM
[2022-03-28 08:45] VITALS: BP 102/49; BP 115/63; PULSE 88; RESP 18; O2SAT 94
[2022-03-28 08:50] VITALS: BP 106/65; BP 115/63; PULSE 88; RESP 18; TEMP 36.4; O2SAT 97
[2022-03-28 09:18] VITALS: BP 115/63
== END 2022-03-28 09:44 | disposition home or self-care (01) ==
LOC: EN 06:12 → AC 06:13
PROVIDERS: PCP Family Medicine; Referring Provider Family Medicine; Visit Provider Surgery
PROC: 0DJD8ZZ Inspection of Lower Intestinal Tract, Via Natural or Artificial Opening Endoscopic (ICD-10-PCS; CPT 45378; principal; 2022-03-28 07:25)
DX: D12.2 Benign neoplasm of ascending colon (principal); D12.3 Benign neoplasm of transverse colon; D12.4 Benign neoplasm of descending colon; K57.30 Diverticulosis of large intestine without perforation or abscess without bleeding; E03.9 Hypothyroidism, unspecified; Z87.891 Personal history of nicotine dependence; Z79.899 Other long term (current) drug therapy
CPT/HCPCS: 45385; 45380; 88305; J7120; J2405

== ENCOUNTER 2022-12-20 15:18 | Inpatient (IN) | payer MEDICARE, BC, SELFPAY ==
[2022-12-20 15:21] VITALS: BP 101/59; PULSE 88; RESP 17; TEMP 36.2; O2SAT 98
--- NOTE | 2022-12-20 17:38 | EKG12_ITS ---
Test Reason : WEAKNESS Blood Pressure : / mmHG Vent. Rate : 102 BPM Atrial Rate : 102 BPM P-R Int : 128 ms QRS Dur : 066 ms QT Int : 336 ms P-R-T Axes : 085 -08 068 degrees QTc Int : 437 ms Sinus tachycardia Right atrial enlargement Borderline ECG Confirmed by TERESA GEORGE, ETHAN ([id number]), tape editor DEON GARIBAY ([id number]) on 12/21/2022 12:17:05 PM Referred By: Confirmed By:ETHAN MOORE MD
[2022-12-20 17:53] LABS: Absolute Lymphocyte Count 2.26 X10^3/uL (0.83-4.51); Absolute Neutrophil Count 8.2 X10^3/uL (2.0-7.7); Basophil# 0.06 X10^3/uL; Basophil% 0.5 % (0-1); Eosinophil# 0.12 X10^3/uL; Hematocrit 46.6 % (37-47); Hemoglobin 15.6 g/dL (12.0-15.0); Lymphocyte # 2.26 X10^3/ul (0.83-4.51); Lymphocyte % 19.6 % (19-41); Mean Corp Hgb Conc 33.5 g/dL (32-36); Mean Corpuscular Hgb 30.9 pg (27.0-32.0); Mean Corpuscular Volume 92.3 fL (81-99); Mean Platelet Vol. 9.7 fl (6.2-12.0); Monocyte% 7.8 % (0-10); NRBC Flagged by Analyzer 0 % (0-5); Neutrophil # 8.15 X10^3/uL (2.7-7.7); Neutrophil % 70.8 % (47-70); Platelet Count 187 K/mm3 (150-450); RBC Distribution Width CV 12.3 % (11.6-14.6); RBC Distribution Width SD 41.5 fl (35.1-43.9); Red Blood Count 5.05 M/mm3 (4.2-5.4); White Blood Count 11.5 K/mm3 (4.4-11.0)
[2022-12-20 18:13] LABS: Anion Gap 8 (5-15); BUN 29 mg/dL (7-18); BUN/Creat Ratio 40.3 RATIO (10-20); Chloride 104 mmol/L (98-107); Creatinine, Serum 0.72 mg/dL (0.55-1.02); EST Glomerular Filtration Rate 86 mL/min (>60); Est Glom Filt Rate - Afr Amer 103 mL/min (>60); Glucose 94 mg/dL (74-106); Potassium 3.9 mmol/L (3.5-5.1); Sodium Level 134 mmol/L (136-145)
--- NOTE | 2022-12-20 18:40 | EX.ED.DYSGE1 ---
HPI History of Present Illness Chief Complaint: Weakness Detail of Chief Complaint: Vomited brown gastric fluid and black stool Informant: patient Onset/Context/Timing Onset: Today Context: Sudden Onset Timing: Intermittent Quality: Hematemesis and melena Location: GI Current Severity: Moderate Maximum Severity: Moderate Worsened by: Patient took 1 ibuprofen tablet several days ago. Relieved by: Nothing Associated Symptoms Associated Symptoms: Fatigue, lightheadedness and mild dyspnea with activity Narrative Narrative: Patient is a 67-year-old woman with history of hypothyroidism, hypercholesterolemia and hypokalemia who presents with vomiting what appears to be brown coffee-ground material and had black stool this morning. She denies history of GERD, hiatal hernia or peptic ulcer disease. She has had a recent colonoscopy with Dr. Hylton for polyps. (See March 2022) Patient denies fever, chills night sweats. She denies headache, visual, ocular auditory symptoms. Patient denies anginal anginal equivalent symptoms. She denies orthopnea or PND. She denies hematuria. She denies bruising easily. She is not on antiplatelet or anticoagulant. Prior similar symptoms: No Recent Illness/Hospitalization: No PFSH PFSH Medical History ARF (acute renal failure) Arthritis Bipolar disorder Dehydration Depression Diarrhea Easy bruising Hypokalemia Hypomagnesemia Hyponatremia Hypotension Hypothyroid Leukopenia Noncompliance with medication regimen Obstipation Positive colorectal cancer screening using Cologuard test Smoker Thrombocytopenia Thyroid disease Tonsillar cancer Wears dentures Home Medications acetaminophen 325 mg tablet 650 mg (2 x 325 mg) PO Q6H PRN PRN Mild Pain (1-3)/Temp > 100.7 F 12/27/18 [Rx Last Taken Unknown] lovastatin 40 mg tablet 40 mg PO DAILY CHOLESTEROL #30 tabs 12/27/18 [Rx Last Taken Unknown] levothyroxine 100 mcg tablet 88 mcg PO DAILY@0600 03/01/22 [History Last Taken Unknown] potassium bicarbonate-citric acid 25 mEq effervescent tablet (Effer-K) 25 meq PO BID 03/01/22 [History Last Taken Unknown] multivitamin 1 cap PO DAILY 03/26/22 [History Last Taken Unknown] Allergy/AdvReac Type Severity Reaction Status Date / Time morphine AdvReac Vomiting Verified 12/20/22 15:20 potassium pills AdvReac Vomiting Uncoded 12/20/22 15:20 Family History Mother Cancer Lung Cancer Father Cancer Brain cancer Surgical History History of appendectomy History of History of cataract extraction with lens replacement History of hysterectomy History of tonsillectomy Social History Smoking Status: Current every day smoker tobacco type: cigarettes alcohol intake: never substance use type: does not use ROS ROS ED Constitutional Constitutional ED: Denies chills, fever(s), subjective, sweats or weight loss Eyes Eyes: Denies blurry vision, change in vision or diplopia ENT ENT ED: Denies ear pain, rhinorrhea or sore throat Cardiovascular Cardiovascular: Denies chest pain, orthopnea, palpitations, paroxysmal nocturnal dyspnea or racing heartbeat Respiratory/Chest Respiratory/Chest: Reports dyspnea on exertion; Denies cough, dyspnea, orthopnea or paroxysmal nocturnal dyspnea Gastrointestinal Gastrointestinal: Reports melena; Denies abdominal pain, nausea or vomiting Genitourinary Genitourinary ED: Denies dysuria, hematuria or urinary frequency Musculoskeletal Musculoskeletal: Denies arthralgias, back pain or myalgias Integumentary Denies abscess, Abrasions or rash Neurologic Neurologic: Denies headache(s), paresthesias or weakness Psychiatric Psychiatric: Reports anxiety Endocrine Endocrinology: Denies cold intolerance or heat intolerance Hematologic/Lymphatic Hematologic/Lymphatic: Reports systems reviewed and no addt'l complaints, except as documented EXAM Physical Exam Const Vital Signs: 12/20/22 15:21 Temperature 97.1 F L Temperature Source Temporal Pulse Rate 88 Respiratory Rate 17 Blood Pressure 101/59 L Blood Pressure Mean 73 Pulse Ox 98 Oxygen Delivery Method Room Air Positive well nourished and well developed; Negative for obese General Appearance ED: well developed and NAD; Negative for cyanotic, diaphoretic or pallor Nutritional Appearance: Negative for obese HEENT Reports moist mucous membranes HEENT Narrative: Head is normocephalic and atraumatic. Ears normal. TMs normal. Nares patent. Posterior pharynx is normal. Eyes PERRL and EOMs intact bilaterally General Eye ED: Yes pale conjunctiva; Negative for scleral icterus Neck no lymphadenopathy, supple and no JVD Chest Wall inspection of chest normal and palpation of chest normal Resp normal respiratory effort and clear to auscultation bilaterally Cardio regular rate, regular rhythm, S1 normal heart sound, S2 normal heart sound and no murmurs GI normal to inspection, nondistended, normoactive bowel sounds, non-tender, non-distended and no masses; Negative for hepatosplenomegaly GI Narrative: Positive melena Back/Spine no CVA tenderness Extremity normal to inspection General Extremety ED: Negative for edema or tenderness General Extremity: Negative for edema Neuro oriented x3, CN's II-XII intact bilaterally and no sensory deficits noted Sensorium / Orientation: alert Psych mental status grossly normal Skin no rashes or lesions noted, no wounds and No skin turgor normal General Skin Exam: Negative for elasticity normal, jaundice or pallor MDM MDM MDM Narrative Medical decision making narrative: Patient's history and physical is consistent with upper GI bleed. Will obtain CBC, CMP to assess BUN to creatinine ratio stool for blood testing and patient was typed and screened. Since patient has been scoped in the past by Dr. Hylton and Dr. Villareal is not available will ask if she is willing to see patient as consult with admission to GI otherwise patient require transfer. Lab Data Attestation: I reviewed the patient's lab results. Lab results narrative: White count slightly elevated. H&H is 15.6 and 46.6. Basic metabolic panel is remarked for elevated BUN to creatinine ratio of 40:1. BUN is 29 creatinine 0.7. This is consistent with GI bleed. Labs: Laboratory Results - last 24 hr 12/20/22 17:45 WBC 11.5 H RBC 5.05 Hgb 15.6 H Hct 46.6 MCV 92.3 MCH 30.9 MCHC 33.5 RDW Std Deviation 41.5 RDW Coeff of Julien 12.3 Plt Count 187 MPV 9.7 Immature Gran % (Auto) 0.300 Neut % (Auto) 70.8 H Lymph % (Auto) 19.6 Norman % (Auto) 7.8 Eos % (Auto) 1.0 Baso % (Auto) 0.5 Absolute Neuts (auto) 8.2 H Absolute Lymphs (auto) 2.26 Nucleated RBC % 0 Sodium 134 L Potassium 3.9 Chloride 104 Carbon Dioxide 22.0 Anion Gap 8 BUN 29 H Creatinine 0.72 Est GFR (MDRD) Af Amer 103 Est GFR (MDRD) Non-Af 86 BUN/Creatinine Ratio 40.3 H Glucose 94 Calcium 10.0 Antibody Screen NEGATIVE EKG Initial EKG: Attestation: I personally reviewed and interpreted this EKG as follows: Interpretation: Sinus Tachycardia (Rate of 102 with right atrial enlargement. SD interval is 128 ms per cures. Sick 6 ms. QT duration 336 ms. [place] is normal. There is no ischemic changes noted.) Management Discussion w/another healthcare provider: Hospitalist (Spoke to Dr. Breann Walsh regarding patient's history, physical presentation and laboratory results) and Grade Tamper (Dr. Hylton will see patient in consultation) Treatment and Re-Evaluation :: Prior to going to the floor patient had drop in blood pressure to 81 systolic. She was given a fluid bolus. Dr. Breann Walsh was made aware. Critical Care Time Critical Care Time: Yes Critical care time (excluding procedures): 30-74 minutes (31), Including time spent: (History, physical, documentation, review of prior labs interpretation laboratory results, discussion with wardrobe image consultant and hospitalist for admission and treatment of hypotension), Discussing w/Patient &/or Family/Transitional Care Nurse, Discussing w/Consultants and Arranging Admission or Transfer Discharge Plan Dx/Rx/DC Orders Clinical Impression: Acute hypotension Disposition Disposition: Acute Care Hospital [facility] Discharge Date/Time: 12/20/22 21:35
--- NOTE | 2022-12-20 19:02 | PCM.HP.STD ---
[facility] - General General Date of Service: 12/20/22 Chief Complaint: coffee ground emesis [facility] Narrative NUBIA CORNELL, is a 67 F with a PMh as outlined who presents via the ED on 12/20/2022 with a complaint of coffee ground emesis x 2 and dark stools x 2. Patient says she had not been feeling well for about a week and felt weak. She denied any abdominal pain but said she had had some nausea and vomiting. She vomited twice and it was coffee-ground in color. She also had 2 bowel movements and they were very black. She says she took ibuprofen last week but has not taken any since then. She denies any history of GI bleed. She denied any weight loss, fever or chills shortness of breath or any other symptoms. Review of systems otherwise negative. She says she had a colonoscopy a few months ago after she had Cologuard and it was positive. When the colonoscopy was done, the surgeon found polyps. She says she was told that she will need repeat colonoscopy in 3 to 5 years. Vitals in the ED were blood pressure 101/59, pulse rate of 88, respiratory rate of 17 and temperature of 97.1 Fahrenheit. She was saturating at 98% on room air. CBC showed hemoglobin of 15.6 with WBC of 11.5 and platelets of 187. Chemistry shows sodium of 134 with potassium of 3.9 and creatinine of 0.72. BUN over creatinine ratio was 40.3. She has been admitted to be managed for GI bleed. [facility] Medical History ARF (acute renal failure) Arthritis Bipolar disorder Dehydration Depression Diarrhea Easy bruising Hypokalemia Hypomagnesemia Hyponatremia Hypotension Hypothyroid Leukopenia Noncompliance with medication regimen Obstipation Positive colorectal cancer screening using Cologuard test Smoker Thrombocytopenia Thyroid disease Tonsillar cancer Wears dentures Home Medications acetaminophen 325 mg tablet 650 mg (2 x 325 mg) PO Q6H PRN PRN Mild Pain (1-3)/Temp > 100.7 F 12/27/18 [Rx Last Taken Unknown] lovastatin 40 mg tablet 40 mg PO DAILY CHOLESTEROL #30 tabs 12/27/18 [Rx Last Taken Unknown] levothyroxine 100 mcg tablet 88 mcg PO DAILY@0600 03/01/22 [History Last Taken Unknown] potassium bicarbonate-citric acid 25 mEq effervescent tablet (Effer-K) 25 meq PO BID 03/01/22 [History Last Taken Unknown] multivitamin 1 cap PO DAILY 03/26/22 [History Last Taken Unknown] Allergy/AdvReac Type Severity Reaction Status Date / Time morphine AdvReac Vomiting Verified 12/20/22 15:20 potassium pills AdvReac Vomiting Uncoded 12/20/22 15:20 Family History Mother Cancer Lung Cancer Father Cancer Brain cancer Surgical History History of appendectomy History of History of cataract extraction with lens replacement History of hysterectomy History of tonsillectomy Social History Smoking Status: Current every day smoker tobacco type: cigarettes alcohol intake: never substance use type: does not use ROS Constitutional Constitutional: Reports fatigue, malaise and weakness; Denies anorexia, chills or fever(s) Eyes Eyes: Denies change in vision ENT HEENT: Denies dysphagia, headache(s), nasal congestion, sore throat or throat swelling Cardiovascular Cardiovascular: Denies chest pain, edema, palpitations, paroxysmal nocturnal dyspnea or syncope Respiratory/Chest Respiratory/Chest: Denies cough, shortness of breath at rest or shortness of breath with exertion Gastrointestinal Gastrointestinal: Reports melena; Denies abdominal pain, diarrhea, dyspepsia, hematemesis, hematochezia, nausea or vomiting Genitourinary Genitourinary: Denies hematuria or nocturia Musculoskeletal Musculoskeletal: Denies extremity pain, joint stiffness or muscle weakness Integumentary Integumentary: Denies dry skin or jaundice Neurologic Neurologic: Denies confusion, dizziness, focal weakness, headache(s), numbness or weakness Psychiatric Psychiatric: Denies anxiety or depression Vital Signs Vital Signs Vital Signs: 12/20/22 15:21 Temperature 97.1 F L Temperature Source Temporal Pulse Rate 88 Respiratory Rate 17 Blood Pressure 101/59 L Blood Pressure Mean 73 Pulse Ox 98 Oxygen Delivery Method Room Air Physical Exam Const alert, oriented x3 and no apparent distress General Appearance: cooperative HEENT normocephalic and head/scalp atraumatic Mouth: dry mucous membranes Eyes PERRL and EOMs intact bilaterally Neck no lymphadenopathy, supple and no JVD Lymph Lymphatic: no lymphadenopathy noted and no lymphedema noted Resp normal respiratory effort, normal air movement and clear to auscultation bilaterally Cardio regular rate, regular rhythm, S1 normal heart sound, S2 normal heart sound and no murmurs GI normal to inspection, nondistended, normoactive bowel sounds, soft to palpation, non-tender and non-distended Extremity normal capillary refill, no clubbing, cyanosis or edema and no calf tenderness General Extremity: no tenderness to palpation of joints or extremities Skin General Skin Exam: no breakdown Neuro CN's II-XII intact bilaterally, no focal motor deficits and no sensory deficits noted Psych thought process normal, cooperative and affect normal Appearance: appropriate Results Lab / Micro Data 12/20/22 17:45 12/20/22 17:45 Labs: Laboratory Results - last 24 hr 12/20/22 17:45: WBC 11.5 H, RBC 5.05, Hgb 15.6 H, Hct 46.6, MCV 92.3, MCH 30.9, MCHC 33.5, RDW Std Deviation 41.5, RDW Coeff of Julien 12.3, Plt Count 187, MPV 9.7, Immature Gran % (Auto) 0.300, Neut % (Auto) 70.8 H, Lymph % (Auto) 19.6, Trigg % (Auto) 7.8, Eos % (Auto) 1.0, Baso % (Auto) 0.5, Absolute Neuts (auto) 8.2 H, Absolute Lymphs (auto) 2.26, Nucleated RBC % 0, Sodium 134 L, Potassium 3.9, Chloride 104, Carbon Dioxide 22.0, Anion Gap 8, BUN 29 H, Creatinine 0.72, Est GFR (MDRD) Af Amer 103, Est GFR (MDRD) Non-Af 86, BUN/Creatinine Ratio 40.3 H, Glucose 94, Calcium 10.0 Micro: Microbiology 12/20/22 16:58 Stool Stool Occult Blood (BOOGIE) - Final Occult Blood Positive Assessment & Plan Assessment/Plan (1) GI bleed: PLAN: Plan #Acute GI bleed admit to med surg had coffee ground emesis x 2 as well as melenic stools x 2 admit to med surg keep NPO consult general surgery as she had a scope by general surgery recently IV pantoprazole 40mg bid hydrate with IVF NS @ 125cc/hr she had colonoscopy in March 2022 after she had a positive cologuard test; findings were diverticulosis in sigmoid colon, polyps in proximal transverse colon, hepatic flexure, ascending colon, descending colon and distal transverse colon which were removed. 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 potassium today is 3.9 DVT prophylaxis;SCDs CODE STATUS: Full code Patient counseled extensively about different types of CODE STATUS including full code, DNR CCA and DNR CCA. Patient elects to be full code; she says she is not ready to as she has a new great grand child who she wants to spend time with. Total [id number] time 17 minutes. Charges/Coding Visit Charges Inpatient E&M: 31946 Init Hosp L3 Procedures Hospitalists Procedures: 45253 Advncd Care Plan 30 Min
[2022-12-20] MEDS: Pantoprazole Sodium 80 MG in 0.9% Normal Saline (50mL Bag) 15 ML 420 MG IV BOLUS (19:17)
[2022-12-20 20:17] VITALS: BP 81/60; PULSE 81; RESP 18; TEMP 36.2; O2SAT 98
[2022-12-20] MEDS: 0.9% Normal Saline (1000mL) 1,000 ML 999 ML IV (20:27)
[2022-12-20 20:45] VITALS: BP 88/63
[2022-12-20 21:04] VITALS: BP 102/59
--- NOTE | 2022-12-20 21:22 | NURSING ---
PT DOES NOT RECEIVE IMMUNAZATIONS.
[2022-12-20 22:30] VITALS: BMI 19.6
[2022-12-20 22:35] VITALS: BMI 19.7
[2022-12-20 22:45] VITALS: BP 93/54; PULSE 78; RESP 16; TEMP 36.1; O2SAT 96
[2022-12-20] MEDS: 0.9% Normal Saline (1000mL) 1,000 ML 125 ML IV (23:00)
[2022-12-21] VITALS (11 sets, daily range): BP systolic 78–118; BP diastolic 47–76; PULSE 56–72; RESP 16–18; TEMP 36.4–37.7; O2SAT 94–98
--- NOTE | 2022-12-21 | GASB_PTH ---
PATIENT: NUBIA CORNELL LOC: MS3 U#:[id number] AGE/SX: 67/F ROOM: [facility] [place] RE12/20/[address]: Dr. Jarrell Molina MD : 1955 BED: 1 DIS: 12/23/2022 SPEC #: [id number] RECD: 12/24/22 13:42 STATUS: MICK REQ #: [id number] JM: 12/21/22 00:[address]: Es Abad DEPT: SURGICAL PATHOLOGY RECD BY: Bernard Cantu ENTERED: 12/24/22 10:07 SP TYPE: Gastric Bx OTHR DR: MD Dr. Verna Hong MD Dr. Prakash Chand, MD Dr. Tamera Robotham, MD Tissues: Gastric mucous membrane Procedures: Surgery Specimen Level IV Comments: @ Ordering doctor for SUIV edited from to @ by ARNEL at 12/24/22 1332 @ Submitting doctor edited from to @ by MIRIAMOD at 12/24/221331 HEADER OPERATION: EGD, biopsy PRE-OP DIAGNOSIS: GI bleed TISSUE SUBMITTED: Gastric body, H. pylori and path, adjacent to gastric antrum ulcer MICROSCOPIC DIAGNOSIS Gastric body, biopsy: Chronic active gastritis. See comment. AM:katie 12/25/2022 COMMENT The results of immunohistochemistry for Helicobacter pylori will be reported separately ([id number]). MICROSCOPIC DESCRIPTION Slides are reviewed. GROSS DESCRIPTION Received in fixative is one container labeled with the patient's name and designated gastric body and antrum ulcer. The specimen consists of multiple irregular fragments of light cadena soft tissue that in aggregate measure 0.8 x 0.2 x 0.1 cm. The specimen is totally submitted in one cassette. / JUAN:katie 12/24/2022 TC:2 CPT: 29647
[2022-12-21] MEDS: 0.9% Normal Saline (1000mL) 1,000 ML 125 ML IV (06:15)
[2022-12-21 06:21] LABS: Absolute Lymphocyte Count 1.78 X10^3/uL (0.83-4.51); Absolute Neutrophil Count 3.2 X10^3/uL (2.0-7.7); Basophil# 0.06 X10^3/uL; Eosinophil# 0.27 X10^3/uL; Eosinophils% 4.7 % (0-5); Hematocrit 36.9 % (37-47); Hemoglobin 12.1 g/dL (12.0-15.0); Lymphocyte # 1.78 X10^3/ul (0.83-4.51); Lymphocyte % 30.7 % (19-41); Mean Corp Hgb Conc 32.8 g/dL (32-36); Mean Corpuscular Hgb 31.1 pg (27.0-32.0); Mean Corpuscular Volume 94.9 fL (81-99); Monocyte# 0.51 X10^3/uL; Monocyte% 8.8 % (0-10); NRBC Flagged by Analyzer 0 % (0-5); Neutrophil # 3.15 X10^3/uL (2.7-7.7); Neutrophil % 54.5 % (47-70); Platelet Count 129 K/mm3 (150-450); RBC Distribution Width CV 12.4 % (11.6-14.6); Red Blood Count 3.89 M/mm3 (4.2-5.4); White Blood Count 5.8 K/mm3 (4.4-11.0)
[2022-12-21 06:54] LABS: Anion Gap 6 (5-15); BUN 27 mg/dL (7-18); BUN/Creat Ratio 40.7 RATIO (10-20); Calcium,Total 8.5 mg/dL (8.5-10.1); Chloride 111 mmol/L (98-107); Creatinine, Serum 0.66 mg/dL (0.55-1.02); EST Glomerular Filtration Rate 94 mL/min (>60); Est Glom Filt Rate - Afr Amer 114 mL/min (>60); Estimated Creatinine Clearance 42.84 ml/min; Glucose 82 mg/dL (74-106); Potassium 3.7 mmol/L (3.5-5.1); Sodium Level 139 mmol/L (136-145)
--- NOTE | 2022-12-21 07:29 | CON.PCM.SX_ITS ---
Assessment & Plan Assessment/Plan (1) GI bleed: PLAN: Plan Discussed with patient we will plan to do an EGD as she just recently had a colonoscopy in March that did not show anything that would be suspicious for bleeding and it was dark/black. I have discussed the above with the patient. I have offered the patient EGD for evaluation. I have explained the risks/benefits of the procedure and described the pr ocedure. I have discussed the risks with the patient, including but not limited to: infection, bleeding, perforation of the GI tract requiring emergency surgery, inability to complete the procedure, injury to any internal organs, complications of anesthesia, etc. - the patient understands and agrees to proceed. I have answered all the patient's questions to the patient's satisfaction and the patient has no further questions. Es Abad M.D. Pager: [phone] [facility] [address] [place] [address], [facility], [address] [place] [id number] Office: [phone] HPI Consult Data Date of Consult: 12/21/22 HPI Narrative HPI Narrative: NUBIA CORNELL, is a 67 F who presented presented to the due to coffee-ground emesis, dark/melanotic stools. Patient states yesterday started having mid abdominal pain and then had some nausea and vomited up some dark material patient states about 30 minutes later she did have some dark black stool. Patient states she did feel little bit dizzy however after getting IV fluids in the ER she does feel much better. Patient last had a colonoscopy in March 2022 by myself and had multiple tubular adenomas at that time. Patient has not had any further bowel movements while in the hospital. Hemoglobin this morning is 12.1. Patient was started on Protonix IV. [facility] Medical History ARF (acute renal failure) Arthritis Bipolar disorder Dehydration Depression Diarrhea Easy bruising Hypokalemia Hypomagnesemia Hyponatremia Hypotension Hypothyroid Leukopenia Noncompliance with medication regimen Obstipation Positive colorectal cancer screening using Cologuard test Smoker Thrombocytopenia Thyroid disease Tonsillar cancer Wears dentures Home Medications acetaminophen 325 mg tablet 650 mg (2 x 325 mg) PO Q6H PRN PRN Mild Pain (1- 3)/Temp > 100.7 F 12/27/18 [Rx Last Taken Unknown] lovastatin 40 mg tablet 40 mg PO DAILY CHOLESTEROL #30 tabs 12/27/18 [Rx Last Taken Unknown] levothyroxine 100 mcg tablet 88 mcg PO DAILY@0600 03/01/22 [History Last Taken Unknown] potassium bicarbonate-citric acid 25 mEq effervescent tablet (Effer-K) 25 meq PO BID 03/01/22 [History Last Taken Unknown] multivitamin 1 cap PO DAILY 03/26/22 [History Last Taken Unknown] Allergy/AdvReac Type Severity Reaction Status Date / Time morphine AdvReac Vomiting Verified 12/20/22 15:20 potassium pills AdvReac Vomiting Uncoded 12/20/22 15:20 Family History Mother Cancer Lung Cancer Father Cancer Brain cancer Surgical History History of appendectomy History of History of cataract extraction with lens replacement History of hysterectomy History of tonsillectomy Social History Smoking Status: Current every day smoker tobacco type: cigarettes alcohol intake: never substance use type: does not use ROS Constitutional Constitutional: Denies anorexia Eyes Eyes: Denies change in vision ENT HEENT: Denies dysphagia Cardiovascular Cardiovascular: Denies chest pain Respiratory/Chest Respiratory/Chest: Denies cough Gastrointestinal Gastrointestinal: Reports coffee ground emesis, melena, nausea and vomiting; Denies abdominal pain, dysphagia or hematemesis Genitourinary Genitourinary: Denies dysuria Musculoskeletal Musculoskeletal: Denies joint swelling Integumentary Integumentary: Denies rash Neurologic Neurologic: Denies numbness Psychiatric Psychiatric: Reports anxiety Endocrine Endocrinology: Denies palpitations Hematologic/Lymphatic Hematologic/Lymphatic: Denies easy bleeding Physical Exam Const alert, oriented x3 and no apparent distress HEENT normocephalic and head/scalp atraumatic Neck supple Resp normal respiratory effort Cardio regular rate GI soft to palpation and non-tender; Negative for non-distended Palpation: Negative for guarding Extremity no clubbing, cyanosis or edema Skin no rashes or lesions noted Neuro CN's II-XII intact bilaterally Psych mental status grossly normal Lab / Micro Data 12/21/22 06:01 12/21/22 06:01 Labs: Laboratory Results - last 24 hr 12/20/22 17:45: WBC 11.5 H, RBC 5.05, Hgb 15.6 H, Hct 46.6, MCV 92.3, MCH 30.9, MCHC 33.5, RDW Std Deviation 41.5, RDW Coeff of Julien 12.3, Plt Count 187, MPV 9.7, Immature Gran % (Auto) 0.300, Neut % (Auto) 70.8 H, Lymph % (Auto) 19.6, Schleicher % (Auto) 7.8, Eos % (Auto) 1.0, Baso % (Auto) 0.5, Absolute Neuts (auto) 8.2 H, Absolute Lymphs (auto) 2.26, Nucleated RBC % 0, Sodium 134 L, Potassium 3.9, Chloride 104, Carbon Dioxide 22.0, Anion Gap 8, BUN 29 H, Creatinine 0.72, Est GFR (MDRD) Af Amer 103, Est GFR (MDRD) Non-Af 86, BUN/Creatinine Ratio 40.3 H, Glucose 94, Calcium 10.0, Antibody Screen NEGATIVE 12/21/22 06:01: WBC 5.8, RBC 3.89 L, Hgb 12.1, Hct 36.9 L, MCV 94.9, MCH 31.1, MCHC 32.8, RDW Std Deviation 43.0, RDW Coeff of Julien 12.4, Plt Count 129 L, MPV 10.0, Immature Gran % (Auto) 0.300, Neut % (Auto) 54.5, Lymph % (Auto) 30.7, Schleicher % (Auto) 8.8, Eos % (Auto) 4.7, Baso % (Auto) 1.0, Absolute Neuts (auto) 3.2, Absolute Lymphs (auto) 1.78, Nucleated RBC % 0, Sodium 139, Potassium 3.7, Chloride 111 H, Carbon Dioxide 22.0, Anion Gap 6, BUN 27 H, Creatinine 0.66, Estim Creat Clear Calc 42.84, Est GFR (MDRD) Af Amer 114, Est GFR (MDRD) Non-Af 94, BUN/Creatinine Ratio 40.7 H, Glucose 82, Calcium 8.5 Micro: Microbiology 12/20/22 16:58 Stool Stool Occult Blood (BOOGIE) - Final Occult Blood Positive Charges/Coding Visit Charges Inpatient E&M: 28523 Init Hosp L3
[2022-12-21] MEDS: Pantoprazole Sodium 40 MG in 0.9% Normal Saline (100mL MB+) 100 ML 330 MG IV ×2 (09:26→21:27)
[2022-12-21] MEDS: Lactated Ringers 1,000 ML 15 ML IV (10:29)
--- NOTE | 2022-12-21 11:00 | IMM_PTH ---
PATIENT: NUBIA CORNELL LOC: MS3 U#:[id number] AGE/SX: 67/F ROOM: [facility] [place]/20/[address]: Dr. Jarrell Molina MD : 1955 BED: 1 DIS: 12/23/2022 SPEC #: [id number] RECD: 12/24/22 13:31 STATUS: SOURadha REQ #: [id number] JM: 12/21/22 11:[address]: Es Abad DEPT: IMMUNOHISTOCHEMISTRY RECD BY: Nola Hendrickson ENTERED: 12/24/22 13:32 SP TYPE: IMMUNO OTHR DR: MD Dr. Verna Hong MD Dr. Prakash Chand, MD Tissues: Stomach, NOS Procedures: H Pylori (initial) PHYSICIAN & INSTITUTION [place] [id number] SPECIMEN INFORMATION: Tissue Source: Gastric body Clinical Info: GI bleed Specimen Number: [id number] CPT code: 69803 METHODOLOGY: Deparaffinized sections of prefer/formalin-fixed tissue or PAP/DQ stained slides are incubated with monoclonal/polyclonal antibodies/oligonucleotide probes. Localization is made via biotin free immunoperoxidase method. Appropriate controls are performed and reacted as expected. Results on target cell population are indicated in the following table: RESULTS: ANTIBODY / CLONE RESULT H Pylori (polyclonal) positive These tests were developed and their performance characteristics determined by [facility]. They may not have been cleared or approved by the U.S. Food and Drug Administration. The FDA has determined that such clearance or approval is not necessary. The above immunohistochemical/dualISH markers are ordered and reviewed by the Pathologist. INTERPRETATION: Gastric body, biopsy: Positive for Helicobacter pylori organisms. AM:katie 12/25/2022
--- NOTE | 2022-12-21 11:05 | PN.HOSP_ITS ---
Reason for Visit Reason for Visit: Diagnoses Gastrointestinal hemorrhage, unspecified (12/20/22) Subjective Subjective Follow-up for upper GI bleed Objective Data Objective Data Vital Signs: Vital Signs Temp Pulse Resp BP Pulse Ox O2 Del Method 97.9 F 72 16 100/63 94 Room Air 12/21/22 09:29 12/21/22 09:29 12/21/22 09:29 12/21/22 09:29 12/21/22 09:29 12/21/22 09:29 Oxygen Delivery Method Room Air Weight: 111 lb 1.808 oz Body Mass Index (BMI) 19.7 Intake & Output: Intake and Output for Last 24 Hours 12/19/22 12/20/22 12/21/22 23:59 23:59 23:59 Intake Total 1035 / 1035 906.25 / 906.25 Balance 1035 / 1035 906.25 / 906.25 Lab / Micro Data 12/21/22 06:01 12/21/22 06:01 Labs: Laboratory Results - last 24 hr 12/20/22 17:45: WBC 11.5 H, RBC 5.05, Hgb 15.6 H, Hct 46.6, MCV 92.3, MCH 30.9, MCHC 33.5, RDW Std Deviation 41.5, RDW Coeff of Julien 12.3, Plt Count 187, MPV 9.7, Immature Gran % (Auto) 0.300, Neut % (Auto) 70.8 H, Lymph % (Auto) 19.6, Andrew % (Auto) 7.8, Eos % (Auto) 1.0, Baso % (Auto) 0.5, Absolute Neuts (auto) 8.2 H, Absolute Lymphs (auto) 2.26, Nucleated RBC % 0, Sodium 134 L, Potassium 3.9, Chloride 104, Carbon Dioxide 22.0, Anion Gap 8, BUN 29 H, Creatinine 0.72, Est GFR (MDRD) Af Amer 103, Est GFR (MDRD) Non-Af 86, BUN/Creatinine Ratio 40.3 H, Glucose 94, Calcium 10.0, Antibody Screen NEGATIVE 12/21/22 06:01: WBC 5.8, RBC 3.89 L, Hgb 12.1, Hct 36.9 L, MCV 94.9, MCH 31.1, MCHC 32.8, RDW Std Deviation 43.0, RDW Coeff of Julien 12.4, Plt Count 129 L, MPV 10.0, Immature Gran % (Auto) 0.300, Neut % (Auto) 54.5, Lymph % (Auto) 30.7, Andrew % (Auto) 8.8, Eos % (Auto) 4.7, Baso % (Auto) 1.0, Absolute Neuts (auto) 3.2, Absolute Lymphs (auto) 1.78, Nucleated RBC % 0, Sodium 139, Potassium 3.7, Chloride 111 H, Carbon Dioxide 22.0, Anion Gap 6, BUN 27 H, Creatinine 0.66, Estim Creat Clear Calc 42.84, Est GFR (MDRD) Af Amer 114, Est GFR (MDRD) Non-Af 94, BUN/Creatinine Ratio 40.7 H, Glucose 82, Calcium 8.5 Micro: Microbiology 12/20/22 16:58 Stool Stool Occult Blood (BOOGIE) - Final Occult Blood Positive Physical Exam Narrative Seen and examined. Patient denies taking NSAID or steroid. She does not take aspirin Plavix, antiplatelet or anticoagulant agent. Denies prior history of GI bleed or peptic ulcer. Has a history of possible IBS Physical exam General: Alert, Oriented x3, Cooperative HEENT: Atraumatic, PERRLA, EOMI, Normocephalic Oral: Oral mucosa moist. No Gingival or Mucosal Lesions/ Ulcerations Neck: Supple, No JVD, Negative Carotid Bruits Lungs: Air entry diminished in bilateral lung bases. No crepitation/rhonchi Cardiovascular: Regular rate, Regular Rhythm, Normal S1, Normal S2, No murmurs Abdomen: Bowel Sounds Present, Soft, Non Tender, Non-Distended : No renal angle tenderness. No suprapubic tenderness. Extremities: No edema, Capillary Refill Less than 3 Seconds Skin: No rashes, No breakdown Musculoskeletal: No Tenderness to Palpation of Joints or Extremities Neurological: Cranial nerves II-XII grossly intact, DTR 2+/4. No acute focal neurological deficit. Psych/Mental Status: Normal Affect, Appropriate. Assessment & Plan Assessment/Plan (1) GI bleed: PLAN: Plan 59-year-old female admitted with coffee-ground emesis and dark stool 2 times, black tarry stools suspicious of melena. She has not been feeling well for 1 week along with generalized weakness. Denies prior history of GI bleed but had ibuprofen last week. No weight loss fever chills shortness of breath or symptoms. #Acute GI bleed * admit to med surg * she had colonoscopy in March 2022 after she had a positive cologuard test; findings were diverticulosis in sigmoid colon, polyps in proximal transverse colon, hepatic flexure, ascending colon, descending colon and distal transverse colon which were removed. Pathology showed that the polyps were tubular adenomas 12/21: Patient had EGD and reported 8 nonbleeding cratered gastric ulcer with adherent clots x2 and pigmented material in the rest in gastric antrum and distal body. Largest lesion was 10 mm. Biopsies were taken for H. pylori and histology. Hemostasis was done. Patient to continue IV pantoprazole 40 mg twice daily and Carafate 1 g 4 times daily added. EGD finding discussed with the patient and her near the bedside. #Hypothyroidism: on synthroid #Depression: not on any meds #Hyperlipidemia: on lovastatin Recurrent hypokalemia: * says she cannot take the big KCl tablets, and can only take effervescent potassium bicarbonate-citric acid tablets. * potassium today is 3.9 DVT prophylaxis;SCDs CODE STATUS: Full code * Patient counseled extensively about different types of CODE STATUS including full code, DNR CCA and DNR CCA. Patient elects to be full code; she says she is not ready to as she has a new great grand child who she wants to spend time with.
--- NOTE | 2022-12-21 11:23 | OP.EGD_ITS ---
Patient Name: Sanaz Srinivasan Procedure Date: 12/21/2022 10:39 AM Date of : 1955 Age: 67 Procedure: Upper GI endoscopy Indications: Coffee-ground emesis, Melena Providers: Es Abad MD Medicines: Monitored Anesthesia Care Patient Profile: This is a 67 year old female. Complications: No immediate complications. Procedure: Pre-Anesthesia Assessment: - Prior to the procedure, a History and Physical was performed, and patient medications and allergies were reviewed. The patient's tolerance of previous anesthesia was also reviewed. The risks and benefits of the procedure and the sedation options and risks were discussed with the patient. All questions were answered, and informed consent was obtained. Prior Anticoagulants: The patient has taken no anticoagulant or antiplatelet agents. ASA Grade Assessment: Per anesthesia. After reviewing the risks and benefits, the patient was deemed in satisfactory condition to undergo the procedure. After obtaining informed consent, the endoscope was passed under direct vision. Throughout the procedure, the patient's blood pressure, pulse, and oxygen saturations were monitored continuously. The gastroscope was introduced through the mouth, and advanced to the second part of duodenum. The upper GI endoscopy was accomplished without difficulty. The patient tolerated the procedure well. Scope In: 10:56:41 AM Scope Out: 11:09:05 AM Total Procedure Duration Time 0 hours 12 minutes 24 seconds Findings: The Z-line was irregular and was found 38 cm from the incisors. Eight non-bleeding cratered gastric ulcers with adherent clot x 2 and pigmented material in the rest were found in the gastric antrum/distal body. The largest lesion was 10 mm in largest dimension. Biopsies were taken with a cold forceps for histology. Biopsies were taken with a cold forceps for Helicobacter pylori cultures. Coagulation for hemostasis of bleeding caused by the procedure using heater probe was successful. The examined duodenum was normal. The cardia and gastric fundus were normal on retroflexion. Impression: - Z-line irregular, 38 cm from the incisors. - Non-bleeding gastric ulcers with pigmented material. Biopsied. Treated with a heater probe. - Normal examined duodenum. Recommendation: - Return patient to [facility] for ongoing care. - Clear liquid diet. - Use sucralfate tablets 1 gram PO QID. - Use Protonix (pantoprazole) 40 mg IV BID. - Await pathology results. - Continue present medications. - No aspirin, ibuprofen, naproxen, or other non-steroidal anti-inflammatory drugs. Procedure Code(s): --- Professional --- 21553, Esophagogastroduodenoscopy, flexible, transoral; with biopsy, single or multiple Diagnosis Code(s): --- Professional --- K22.89, Other specified disease of esophagus K25.9, Gastric ulcer, unspecified as acute or chronic, without hemorrhage or perforation K92.0, Hematemesis K92.1, Melena (includes Hematochezia) CPT copyright 2021 [employer]. All rights reserved. The codes documented in this report are preliminary and upon fly setter review may be revised to meet current compliance requirements. MD Es Orozco MD 12/21/2022 11:22:28 AM This report has been signed electronically. Number of Addenda: 0 Note Initiated On: 12/21/2022 10:39 AM
--- NOTE | 2022-12-21 11:23 | OP.CCLET_ITS ---
12/21/2022 Leroy Kidd Re : Upper GI endoscopy procedure for Sanaz Srinivasan Dear Bernabe This procedure was performed on Wednesday, December 21, 2022. My impressions and recommendations are as follows: Impressions : - Z-line irregular, 38 cm from the incisors. - Non-bleeding gastric ulcers with pigmented material. Biopsied. Treated with a heater probe. - Normal examined duodenum. Recommendations : - Return patient to [facility] for ongoing care. - Clear liquid diet. - Use sucralfate tablets 1 gram PO QID. - Use Protonix (pantoprazole) 40 mg IV BID. - Await pathology results. - Continue present medications. - No aspirin, ibuprofen, naproxen, or other non-steroidal anti-inflammatory drugs. My findings are described in the full procedure note, which is enclosed. If I can be of further assistance, please feel free to contact me at Doctor phone number(s): , Work: . Sincerely, MD Es Orozco MD 12/21/2022 11:22:28 AM This report has been signed electronically.
--- NOTE | 2022-12-21 14:15 | CASEMGMT ---
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 Pt voices understanding and consents to?assessment?at this time.? Pt resting in bed in no distress at this time.? and sonManuel, @ bedside and pt agreeable to them being present during assessment. Pt is A/O at this time and answers all questions appropriately.?? Care providers, pharmacy, and demographics verified/updated at this time. PCP: Dr Kidd Specialists: RILEY Nieves Preferred Pharmacy: [facility] Insurance: [place] Prescription Benefit:?Yes-[place] [facility] [place] Living Will/HPOA:?Pt does not currently have LW/HCPOA and declines info at this time.? Pt made aware that she can contact as an out-pt and make appt in the future if she decides she would like to talk with someone about this or would like to utilize [facility] social work for advanced directive completion.? LNOK: , Jaiden. SonManuel. Pt has 2 other children. Living Arrangements: Lives w/ and sonManuel in downstairs apt. 3 steps to go up from the sidewalk and another 4 steps to go up into apartment. Pt states she does okay w/the stairs. Pt is independent w/ADL's, IADL's, and manages her own medications. Transportation: provides transportation. DME: ? Denies using any DME and denies needs.? She states has following DME available, if needed: shower chair, BSC, W/C, cane, walker HHC/SNF: No hx of either. Denies needs and no needs identified. Pt wishes to return home and states has no concerns with going home at time of discharge. PLAN:??Home w/family support and discharge plans in place. Riki ALVARADON?RN?CM
[2022-12-21] MEDS: 0.9% Saline Lock 10 ML Syringe IV ×2 (15:09→21:28)
--- NOTE | 2022-12-21 15:37 | CHAPLAIN ---
Type of Pastoral Visit _x__ Initial Visit ___ Follow-up Visit ___ On-call Visit ___ General Patient Visit ___ Spiritual Assessment ___ Family Conference ___ Bereavement ___ Rapid Response ___ Code Blue ___ Other (describe below) Pastoral Care Referral From _x__ Patient ___ Family ___ Nurse ___ Physician ___ Home Health Physical Therapist ___ Exchange Specialist ___ Other (describe below) Sacrament/Intervention _x__ Active listening ___ Anointing ___ Holiness ___ Bereavement ___ Communion ___ Shawna exploration ___ ___ Life review _x__ Prayer ___ Reconciliation ___ Sacrament of Sick ___ Supportive presence ___ Wedding ___ Other (describe below) Pastoral Comments patient has spouse and son in room with her; pt says that she is having some relief because they know what it is now; pt states that shawna helps her cope with situations and that she is always glad to have a prayer; no other needs identified
[2022-12-21] MEDS: Sucralfate 1 GM Tablet PO ×2 (16:54→21:27)
[2022-12-22 02:15] VITALS: BP 106/52; PULSE 52; RESP 16; TEMP 36.6; O2SAT 97
[2022-12-22] MEDS: Levothyroxine 88 MCG Tablet PO (06:13)
[2022-12-22] MEDS: Sucralfate 1 GM Tablet PO ×4 (06:13→21:05)
[2022-12-22 08:30] VITALS: BP 111/62; PULSE 63; RESP 18; TEMP 36.9; O2SAT 98
--- NOTE | 2022-12-22 08:40 | PN.SURG_ITS ---
Subjective Subjective Patient is not having any abdominal pain. She reports she is passing flatus. She denies any nausea or vomiting or upset stomach with diet. She is very hungry and begging me for food. Objective Data Objective Data Vital Signs: Vital Signs Temp Pulse Resp BP Pulse Ox O2 Del Method 97.9 F 52 L 16 106/52 L 97 Room Air 12/22/22 02:15 12/22/22 02:15 12/22/22 02:15 12/22/22 02:15 12/22/22 02:15 12/22/22 02:15 Oxygen Delivery Method Room Air Weight: 111 lb 1.808 oz Body Mass Index (BMI) 19.7 Intake & Output: Intake and Output for Last 24 Hours 12/20/22 12/21/22 12/22/22 23:59 23:59 23:59 Intake Total 1035 / 1035 2511.75 / 2511.75 Balance 1035 / 1035 2511.75 / 2511.75 Lab / Micro Data 12/21/22 06:01 12/21/22 06:01 Micro: Microbiology 12/20/22 16:58 Stool Stool Occult Blood (BOOGIE) - Final Occult Blood Positive Physical Exam Const oriented x3 Resp normal respiratory effort GI soft to palpation Palpation: Negative for tender Assessment & Plan Assessment/Plan (1) GI bleed: QUALIFIERS: GI bleed type/associated pathology: gastric ulcer Qualified Code(s): K25.4 - Chronic or unspecified gastric ulcer with hemorrhage PLAN: Patient had EGD yesterday which showed several gastric ulcers. She was started on twice a day PPI and Carafate. Patient is asking for some regular diet. I will advance her as she is not having any pain and she is tolerating clears with no issue. She is on PPI and Carafate and the PPI may be changed to oral likely tomorrow. If she tolerates diet today and she is doing well and her hemoglobin stays stable tomorrow I will change her PPI to oral and discharge her tomorrow. Scott Barrientos MD Pager: [facility] [address] [place] [address], [address] [place] [address] Office:
[2022-12-22] MEDS: Pantoprazole Sodium 40 MG in 0.9% Normal Saline (100mL MB+) 100 ML 330 MG IV ×2 (09:46→21:05)
[2022-12-22 11:00] VITALS: PULSE 59
--- NOTE | 2022-12-22 13:37 | PN.HOSP_ITS ---
Reason for Visit Reason for Visit: Diagnoses Chronic or unspecified gastric ulcer with hemorrhage (12/20/22) Gastrointestinal hemorrhage, unspecified (12/20/22) Objective Data Objective Data Vital Signs: Vital Signs Temp Pulse Resp BP Pulse Ox O2 Del Method 98.5 F 59 L 18 111/62 98 Room Air 12/22/22 08:30 12/22/22 11:00 12/22/22 08:30 12/22/22 08:30 12/22/22 08:30 12/22/22 08:30 Oxygen Delivery Method Room Air Weight: 111 lb 1.808 oz Body Mass Index (BMI) 19.7 Intake & Output: Intake and Output for Last 24 Hours 12/20/22 12/21/22 12/22/22 23:59 23:59 23:59 Intake Total 1035 / 1035 2511.75 / 2511.75 110 / 110 Balance 1035 / 1035 2511.75 / 2511.75 110 / 110 Lab / Micro Data 12/21/22 06:01 12/21/22 06:01 Micro: Microbiology 12/20/22 16:58 Stool Stool Occult Blood (BOOGIE) - Final Occult Blood Positive Physical Exam Narrative Seen and examined. Patient tolerated clear liquid and full liquid diet. Diet advanced to regular diet. Patient denies taking NSAID or steroid. She does not take aspirin Plavix, antiplatelet or anticoagulant agent. Denies prior history of GI bleed or peptic ulcer. Has a history of possible IBS Physical exam General: Alert, Oriented x3, Cooperative HEENT: Atraumatic, PERRLA, EOMI, Normocephalic Oral: Oral mucosa moist. No Gingival or Mucosal Lesions/ Ulcerations Neck: Supple, No JVD, Negative Carotid Bruits Lungs: Air entry diminished in bilateral lung bases. No crepitation/rhonchi Cardiovascular: Regular rate, Regular Rhythm, Normal S1, Normal S2, No murmurs Abdomen: Bowel Sounds Present, Soft, Non Tender, Non-Distended : No renal angle tenderness. No suprapubic tenderness. Extremities: No edema, Capillary Refill Less than 3 Seconds Skin: No rashes, No breakdown Musculoskeletal: No Tenderness to Palpation of Joints or Extremities Neurological: Cranial nerves II-XII grossly intact, DTR 2+/4. No acute focal neurological deficit. Psych/Mental Status: Normal Affect, Appropriate. Assessment & Plan Assessment/Plan (1) GI bleed: QUALIFIERS: GI bleed type/associated pathology: gastric ulcer Qualified Code(s): K25.4 - Chronic or unspecified gastric ulcer with hemorrhage PLAN: Plan 59-year-old female admitted with coffee-ground emesis and dark stool 2 times, black tarry stools suspicious of melena. She has not been feeling well for 1 week along with generalized weakness. Denies prior history of GI bleed but had ibuprofen last week. No weight loss fever chills shortness of breath or symptoms. #Acute GI bleed * admit to med surg * she had colonoscopy in March 2022 after she had a positive cologuard test; findings were diverticulosis in sigmoid colon, polyps in proximal transverse colon, hepatic flexure, ascending colon, descending colon and distal transverse colon which were removed. Pathology showed that the polyps were tubular adenomas 12/21: Patient had EGD and reported 8 nonbleeding cratered gastric ulcer with adherent clots x2 and pigmented material in the rest in gastric antrum and dist al body. Largest lesion was 10 mm. Biopsies were taken for H. pylori and histology. Hemostasis was done. Patient to continue IV pantoprazole 40 mg twice daily and Carafate 1 g 4 times daily added. EGD finding discussed with the patient and her near the bedside. 12/21: Patient tolerating medications well. Continue IV pantoprazole and Carafate. Diet advanced to regular diet and anticipate discharge tomorrow. #Hypothyroidism: on synthroid #Depression: not on any meds #Hyperlipidemia: on lovastatin Recurrent hypokalemia: * says she cannot take the big KCl tablets, and can only take effervescent potassium bicarbonate-citric acid tablets. * potassium today is 3.9 DVT prophylaxis;SCDs CODE STATUS: Full code * Patient counseled extensively about different types of CODE STATUS including full code, DNR CCA and DNR CCA. Patient elects to be full code; she says she is not ready to as she has a new great grand child who she wants to spend time with. Charges/Coding Visit Charges Inpatient E&M: 34638 Subs Hosp L2
[2022-12-22 14:17] VITALS: BP 113/69; PULSE 60; RESP 18; TEMP 37.1; O2SAT 98
[2022-12-22 20:15] VITALS: BP 111/59; PULSE 68; RESP 16; TEMP 36.6; O2SAT 94
[2022-12-22] MEDS: 0.9% Saline Lock 10 ML Syringe IV (21:05)
[2022-12-23 02:15] VITALS: BP 96/55; PULSE 80; RESP 16; TEMP 36.6; O2SAT 97
[2022-12-23] MEDS: Sucralfate 1 GM Tablet PO ×3 (05:46→15:03)
[2022-12-23] MEDS: Levothyroxine 88 MCG Tablet PO (05:46)
--- NOTE | 2022-12-23 07:51 | DCINST_ITS ---
Discharge Instructions Diet Discharge Diet: No restrictions Activity Discharge Activity: Return to Normal Activity Weight Bearing Status: Weight bearing as tolerated Dressing / Incision Call your doctor if you observe: Fever of 101 or Higher, Coldness, Increased Pain, Numbness or Tingling, Change in Color, Inability to urinate, Inability to have a bowel movement, Using more than 1 pad per hour, Shortness of breath, Dizziness, Fainting spells, Swelling in the ankles, Chest pain, Prolonged hiccupping, Increased palpitations (irregular heartbeat) and Calf discomfort Follow Up Care When: IN 2 WEEKS Test Results: Test results from this visit will be discussed in further detail at your follow- up appointment, if applicable. Discharge Plan Admission Admit Date/Time: 12/20/22 19:02 Primary Reason for Your Visit: Acute upper GI bleed due to gastric ulcer Attending Provider: Jarrell Molina Primary Care Provider: Leroy Kidd Consulting Providers: Es Abad; Verna Raymond Discharge Orders/Prescriptions Prescriptions: New sucralfate 1 gram Tablet 1 g PO 1HR_ACHS 30 Days Qty: 120 0RF pantoprazole 40 mg Tablet,Delayed Release (Dr/Ec) 40 mg PO BID 30 Days Qty: 60 2RF Rx Instructions: 40 mg p.o. twice daily at least for 2 months and then once daily to continue Continued levothyroxine 100 mcg tablet 88 mcg PO DAILY@0600 Effer-K 25 mEq tablet, effervescent 25 meq PO BID acetaminophen 325 MG tablet 650 mg PO Q6H PRN PRN (Reason: Mild Pain (1-3)/Temp > 100.7 F) 0RF lovastatin 40 MG tablet 40 mg PO DAILY Qty: 30 0RF multivitamin Capsule 1 cap PO DAILY Referrals / Follow Up: Leroy Kidd MD [Primary Care Provider] - Es Abad MD [Med Staff - Active Staff] - Within 1 Month Disposition Disposition (needs filled in before D/C Order can be placed): Home, Self Care
--- NOTE | 2022-12-23 07:55 | DS.PCM_ITS ---
Providers Date of Admission: 12/20/22 Date of Discharge: 12/23/22 Primary Care Physician: Dr. Leroy Kidd MD Consultations 12/20/22 21:21 Consult: General Surgery Routine Consulting Provider: Es Abad Reason for Consult: GI bleed EMERGENT Consult: No MD Notified: Yes Date Notified: 12/20/22 Time Notified: 19:43 Method of Notification: Text Reason For Visit: GI BLEED Diagnosis Discharge Diagnosis (1) GI bleed: Status: Acute Code(s): K92.2 - Gastrointestinal hemorrhage, unspecified Qualifiers: GI bleed type/associated pathology: gastric ulcer Qualified Code(s): K25.4 - Chronic or unspecified gastric ulcer with hemorrhage Plan 59-year-old female admitted with coffee-ground emesis and dark stool 2 times, black tarry stools suspicious of melena. She has not been feeling well for 1 week along with generalized weakness. Denies prior history of GI bleed but had ibuprofen last week. No weight loss fever chills shortness of breath or symptoms. #Acute GI bleed * admit to med surg * she had colonoscopy in March 2022 after she had a positive cologuard test; findings were diverticulosis in sigmoid colon, polyps in proximal transverse colon, hepatic flexure, ascending colon, descending colon and distal transverse colon which were removed. Pathology showed that the polyps were tubular adenomas 12/21: Patient had EGD and reported 8 nonbleeding cratered gastric ulcer with adherent clots x2 and pigmented material in the rest in gastric antrum and distal body. Largest lesion was 10 mm. Biopsies were taken for H. pylori and histology. Hemostasis was done. Patient to continue IV pantoprazole 40 mg twice daily and Carafate 1 g 4 times daily added. EGD finding discussed with the patient and her near the bedside. 12/21: Patient tolerating medications well. Continue IV pantoprazole and Carafate. Diet advanced to regular diet 12/22: Repeat hemoglobin 12.4/hematocrit 37.5. Patient is discharged on Protonix 40 mg p.o. twice daily at least for 2 months and Carafate 1 g 4 times daily for 1 month and then once daily and follow-up with in 4 weeks #Hypothyroidism: on synthroid #Depression: not on any meds #Hyperlipidemia: on lovastatin Recurrent hypokalemia: * says she cannot take the big KCl tablets, and can only take effervescent potassium bicarbonate-citric acid tablets. * potassium today is 3.9 DVT prophylaxis;SCDs CODE STATUS: Full code * Patient counseled extensively about different types of CODE STATUS including full code, DNR CCA and DNR CCA. Patient elects to be full code; she says she is not ready to as she has a new great grand child who she wants to spend time with. Discharge medication reconciliation done. Discharge follow-up instructions completed. Discharge process discussed with the patient and all questions were answered to patient's satisfaction. Total time spent, exact 35 minutes on discharge meds reconciliation, examin ation, coordination of care with nurses and ancillary staff, review of imaging and blood test and discussion with the patient on follow-up instructions. Medications at Discharge Home Medications acetaminophen 325 mg tablet 650 mg (2 x 325 mg) PO Q6H PRN PRN Mild Pain (1- 3)/Temp > 100.7 F 12/27/18 lovastatin 40 mg tablet 40 mg PO DAILY CHOLESTEROL #30 tabs 12/27/18 levothyroxine 100 mcg tablet 88 mcg PO DAILY@0600 03/01/22 potassium bicarbonate-citric acid 25 mEq effervescent tablet (Effer-K) 25 meq PO BID 03/01/22 multivitamin 1 cap PO DAILY 03/26/22 pantoprazole 40 mg tablet,delayed release 40 mg PO BID 30 days #60 tabs 12/23/22 sucralfate 1 gram tablet 1 g PO 1HR_ACHS 30 days #120 tabs 12/23/22 Physical Exam Narrative Seen and examined. Patient tolerated regular diet. Physical exam General: Alert, Oriented x3, Cooperative HEENT: Atraumatic, PERRLA, EOMI, Normocephalic Oral: Oral mucosa moist. No Gingival or Mucosal Lesions/ Ulcerations Neck: Supple, No JVD, Negative Carotid Bruits Lungs: Air entry diminished in bilateral lung bases. No crepitation/rhonchi Cardiovascular: Regular rate, Regular Rhythm, Normal S1, Normal S2, No murmurs Abdomen: Bowel Sounds Present, Soft, Non Tender, Non-Distended : No renal angle tenderness. No suprapubic tenderness. Extremities: No edema, Capillary Refill Less than 3 Seconds Skin: No rashes, No breakdown Musculoskeletal: No Tenderness to Palpation of Joints or Extremities Neurological: Cranial nerves II-XII grossly intact, DTR 2+/4. No acute focal neurological deficit. Psych/Mental Status: Normal Affect, Appropriate. Weight / BMI Weight Weight: 111 lb 1.808 oz Body Mass Index (BMI) 19.7 ABG / Lab / Microbiology Data 12/23/22 09:33 12/21/22 06:01 Microbiology: Microbiology 12/20/22 16:58 Stool Stool Occult Blood (BOOGIE) - Final Occult Blood Positive D/C Instructions Discharge Diet: No restrictions Weight Bearing Status: Weight bearing as tolerated Call your doctor if you observe: Fever of 101 or Higher, Coldness, Increased Pain, Numbness or Tingling, Change in Color, Inability to urinate, Inability to have a bowel movement, Using more than 1 pad per hour, Shortness of breath, Dizziness, Fainting spells, Swelling in the ankles, Chest pain, Prolonged hiccupping, Increased palpitations (irregular heartbeat) and Calf discomfort When: IN 2 WEEKS Meaningful Use Info Meaningful Use Diagnoses (Choose all that apply): None applicable Discharge Plan Admission Admit Date/Time: 12/20/22 19:02 Primary Reason for Your Visit: Acute upper GI bleed due to gastric ulcer Attending Provider: Jarrell Molina Primary Care Provider: Leroy Kidd Consulting Providers: Es Abad; Verna Raymond Discharge Orders/Prescriptions Prescriptions: New sucralfate 1 gram Tablet 1 g PO 1HR_ACHS 30 Days Qty: 120 0RF pantoprazole 40 mg Tablet,Delayed Release (Dr/Ec) 40 mg PO BID 30 Days Qty: 60 2RF Rx Instructions: 40 mg p.o. twice daily at least for 2 months and then once daily to continue Continued levothyroxine 100 mcg tablet 88 mcg PO DAILY@0600 Effer-K 25 mEq tablet, effervescent 25 meq PO BID acetaminophen 325 MG tablet 650 mg PO Q6H PRN PRN (Reason: Mild Pain (1-3)/Temp > 100.7 F) 0RF lovastatin 40 MG tablet 40 mg PO DAILY Qty: 30 0RF multivitamin Capsule 1 cap PO DAILY Referrals / Follow Up: Leroy Kidd MD [Primary Care Provider] - Es Abad MD [Med Staff - Active Staff] - Within 1 Month Disposition Disposition (needs filled in before D/C Order can be placed): Home, Self Care Charges/Coding Visit Charges Inpatient E&M: 30091 Disch Hosp >30min
[2022-12-23] MEDS: Pantoprazole Sodium 40 MG Tablet PO (08:32)
[2022-12-23 08:34] VITALS: BP 99/55; PULSE 58; RESP 18; TEMP 36.8; O2SAT 97
--- NOTE | 2022-12-23 08:46 | PCM.PN.SRG ---
Subjective Subjective Patient tolerating regular diet with no abdominal pain or nausea or vomiting or bloody stools. Objective Data Objective Data Vital Signs: Vital Signs Temp Pulse Resp BP Pulse Ox O2 Del Method 98.3 F 58 L 18 99/55 L 97 Room Air 12/23/22 08:34 12/23/22 08:34 12/23/22 08:34 12/23/22 08:34 12/23/22 08:34 12/23/22 08:34 Oxygen Delivery Method Room Air Weight: 111 lb 1.808 oz Body Mass Index (BMI) 19.7 Intake & Output: Intake and Output for Last 24 Hours 12/21/22 12/22/22 12/23/22 23:59 23:59 23:59 Intake Total 2511.75 / 2511.75 220 / 220 Balance 2511.75 / 2511.75 220 / 220 Lab / Micro Data 12/21/22 06:01 12/21/22 06:01 Micro: Microbiology 12/20/22 16:58 Stool Stool Occult Blood (BOOGIE) - Final Occult Blood Positive Physical Exam Const oriented x3 and no apparent distress GI soft to palpation and non-tender Assessment & Plan Assessment/Plan (1) GI bleed: QUALIFIERS: GI bleed type/associated pathology: gastric ulcer Qualified Code(s): K25.4 - Chronic or unspecified gastric ulcer with hemorrhage PLAN: Patient had GI bleeding from gastric ulcers. She may convert her PPI to oral and she may be discharged home. Follow-up with Dr. Abad. Scott Brarientos MD Pager: [facility] [address] [place] [address], [address] [place] [address] Office:
[2022-12-23 09:49] LABS: Hematocrit 37.5 % (37-47); Hemoglobin 12.4 g/dL (12.0-15.0)
[2022-12-23 10:30] VITALS: PULSE 67
[2022-12-23 14:00] VITALS: BP 109/70; PULSE 52; RESP 16; TEMP 36.6; O2SAT 100
[2022-12-23 20:07] LABS: Gastrin, Serum 59 pg/mL (0-115)
== END 2022-12-23 15:15 | disposition home or self-care (01) | DRG 379 ==
LOC: ED 19:05 → MS3 20:48
PROVIDERS: Surgery; Admitting Provider Student in an Organized Health Care Education/Training Program; Emergency Provider Emergency Medicine; PCP Family Medicine; Visit Provider Internal Medicine
PROC: 0DJ08ZZ Inspection of Upper Intestinal Tract, Via Natural or Artificial Opening Endoscopic (ICD-10-PCS; CPT 43235; principal; 2022-12-21 10:55)
DX: K25.4 Chronic or unspecified gastric ulcer with hemorrhage (principal); E03.9 Hypothyroidism, unspecified; I95.9 Hypotension, unspecified; K63.5 Polyp of colon; K57.30 Diverticulosis of large intestine without perforation or abscess without bleeding; E87.6 Hypokalemia; E78.5 Hyperlipidemia, unspecified; Z66 Do not resuscitate
CPT/HCPCS: 36415; 80048; 82274; 82941; 85014; 85018; 85025; 86850; 86900; 86901; 88305; 88342; 93005; 99284; J7030; J7120; A4216; J2405; J3490

== ENCOUNTER 2023-01-17 02:29 | Emergency (ER) | payer MEDICARE, BC, SELFPAY ==
[2023-01-17 02:30] VITALS: BP 114/58; PULSE 62; RESP 15; TEMP 36.7; O2SAT 97; BMI 21.9
--- NOTE | 2023-01-17 02:42 | ED.VIS.BACK ---
HPI History of Present Illness Chief Complaint: Back Informant: patient and spouse/S.O. Narrative Narrative: Presents with back pain. Patient states she has her backs been sore for about 3 days. It is all in the left lower back. It hurts if she moves or twist or does anything. She states she never gets in a really comfortable position. She has no urinary symptoms or darkening of the urine. No change in urine. She is eating and drinking fine and does not aggravate it. No trouble breathing. Never had nausea and vomiting with it. No fevers. Patient does have a history of back pain and problems. She is normally not real active. Over the last few days her granddaughter and great grandchild have been visiting. She has been running around the house chasing the 2-year-old. Lifting them up. They have also been doing a lot of cleaning and activity. Her states she has been more active in the last few days than she has for a while. Every time she moves or lifts it bothers the back. They think this is her back pain just being exacerbated. She states normally she has been put on hydrocodone and a muscle relaxant. Of note, patient recently had some GI bleeding. She states that is resolved. No nausea vomiting. No blood in the stool. No abdominal pain. She has not been taking nonsteroidals. It was reaffirmed that she should not take anti-inflammatories with her history of GI bleeds. [facility] Medical History (Updated 01/17/23 @ 04:[address] Tigre Oconnell MD) ARF (acute renal failure) Arthritis Bipolar disorder Dehydration Depression Diarrhea Easy bruising Hypokalemia Hypomagnesemia Hyponatremia Hypotension Hypothyroid Leukopenia Noncompliance with medication regimen Obstipation Positive colorectal cancer screening using Cologuard test Smoker Thrombocytopenia Tonsillar cancer Wears dentures Home Medications acetaminophen 325 mg tablet 650 mg (2 x 325 mg) PO Q6H PRN PRN Mild Pain (1-3)/Temp > 100.7 F 12/27/18 [Rx Last Taken Unknown] lovastatin 40 mg tablet 40 mg PO DAILY CHOLESTEROL #30 tabs 12/27/18 [Rx Last Taken Unknown] levothyroxine 100 mcg tablet 88 mcg PO DAILY@0600 03/01/22 [History Last Taken Unknown] potassium bicarbonate-citric acid 25 mEq effervescent tablet (Effer-K) 25 meq PO BID 03/01/22 [History Last Taken Unknown] multivitamin 1 cap PO DAILY 03/26/22 [History Last Taken Unknown] pantoprazole 40 mg tablet,delayed release 40 mg PO BID 30 days #60 tabs 12/23/22 [Rx Last Taken Unknown] sucralfate 1 gram tablet 1 g PO 1HR_ACHS 30 days #120 tabs 12/23/22 [Rx Last Taken Unknown] fluconazole 200 mg tablet (Diflucan) 200 mg PO ONCE #2 tabs 01/09/23 [Rx Last Taken Unknown] hydrocodone-acetaminophen 5-325mg 5mg-325mg 1 tab PO Q6H PRN PRN Pain 3 days #12 TABLETS 01/17/23 [Rx Last Taken Unknown] orphenadrine citrate 100 mg tablet,extended release 100 mg PO BID #10 tabs 01/17/23 [Rx Last Taken Unknown] Allergy/AdvReac Type Severity Reaction Status Date / Time morphine AdvReac Vomiting Verified 01/09/23 14:25 potassium pills AdvReac Vomiting Uncoded 01/09/23 14:25 Family History Mother Cancer Lung Cancer Father Cancer Brain cancer Surgical History History of appendectomy History of History of cataract extraction with lens replacement History of hysterectomy History of tonsillectomy Social History Smoking Status: Former smoker alcohol intake: never substance use type: does not use ROS ROS ED Constitutional Constitutional ED: Denies chills, fever(s) or sweats ENT ENT ED: Denies rhinorrhea Cardiovascular Cardiovascular: Denies chest pain, palpitations or paroxysmal nocturnal dyspnea Respiratory/Chest Respiratory/Chest: Denies dyspnea, dyspnea on exertion or paroxysmal nocturnal dyspnea Gastrointestinal Gastrointestinal: Denies abdominal pain, diarrhea, melena, nausea or vomiting Genitourinary Genitourinary ED: Denies dysuria, hematuria or urinary frequency Musculoskeletal Musculoskeletal: Reports back pain Integumentary Denies Abrasions or rash Neurologic Neurologic: Reports other Details: Numbness tingling weakness distally. No bowel or bladder dysfunction or incontinence or urinary retention. ; Denies paresthesias or weakness Endocrine Endocrinology: Denies polydipsia or polyuria Hematologic/Lymphatic Hematologic/Lymphatic: Denies easy bleeding or easy bruising Allergic/Immunologic Allergic/Immunologic ED: Denies urticaria EXAM Physical Exam Narrative Exam Narrative: General: Patient is awake and alert. She does look like she is little bit uncomfortable. HEENT: No sign of trauma. Neck is supple no pain with motion Chest shows clear lungs. Saturations normal at 97% on room air. Heart is regular. No murmur or muffled tones. Abdomen is actually soft and completely nontender. : Prepubic tenderness. No CVA tenderness on the left. 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 Back: No cervical or thoracic tenderness. No rib tenderness. She has paraspinal tenderness on the mid upper lumbar region on the left. There almost does appear to be a little bit of spasm. If I have her move or bend it hurts that area. It seems mostly musculoskeletal. Extremities show no weakness. She is actually able to get up and move around and walk well. No sensory change. Const Vital Signs: 01/17/23 02:30 Temperature 98.0 F Temperature Source Temporal Pulse Rate 62 Respiratory Rate 15 Blood Pressure 114/58 L Blood Pressure Mean 76 Pulse Ox 97 Oxygen Delivery Method Room Air MDM MDM MDM Narrative Medical decision making narrative: Has never had a kidney stone. She has no change in urine output or change in symptoms with urination. No darkening or blood seen in the urine. Her symptoms seem to be musculoskeletal. We will check the urine. If there are marked abnormalities we may look further. However, this appears to be more musculoskeletal pain than kidney stone at this time. His urinalysis is clear. There are no white cells or red cells. There are 3+ bacteria but she has no urinary symptoms. This is asymptomatic bacteriuria. This does not require antibiotic treatment. I talked with the patient again. Her is stating that she is been very active. She admits that she was down on the floor playing cards with her great grandson. She is crawling all over with him. She was also lifting him in and out of rides and walking around a local fair. This is all activity that she normally would not do. At this point I do not think we need further work-up or imaging. If she develops urinary symptoms fevers abdominal pain or other issues we may have to do imaging. I do not think blood work is going to give us the answer. She has a history of back pain. She has significant increase in her activity. She has pain with motion twisting or palpation. Clinically this appears to be musculoskeletal in origin at this point. We will get her meds for pain here and to go. Because of her recent GI bleed I do not want her on nonsteroidals. Lab Data Attestation: I reviewed the patient's lab results. Labs: Laboratory Results - last 24 hr 01/17/23 02:49 Urine Color Yellow Urine Clarity Clear Urine pH 8.0 Ur Specific [place] 1.010 Urine Protein Negative Urine Glucose (UA) Normal Urine Ketones Negative Urine Occult Blood Negative Urine Nitrite Negative Urine Bilirubin Negative Urine Urobilinogen Normal Ur Leukocyte Esterase 25 H Urine RBC 0 SEEN Urine WBC 0-5 SEEN Ur Squamous Epith Cells 0-5 SEEN Urine Bacteria 3+ Urine Mucus 0 SEEN Discharge Plan Triage Chief Complaint: Back ED Provider: Tigre Oconnell Dx/Rx/DC Orders Clinical Impression: Pain in left paraspinal region, Acute lumbar myofascial strain Instructions: ED Back Sprain/Strain Prescriptions: New hydrocodone-acetaminophen [hydrocodone-acetaminophen] 5-325 mg tablet 1 tab PO Q6H PRN PRN (Reason: Pain) 3 Days Qty: 12 0RF orphenadrine citrate 100 mg tablet extended release 100 mg PO BID Qty: 10 0RF No Action levothyroxine 100 mcg tablet 88 mcg PO DAILY@0600 Effer-K 25 mEq tablet, effervescent 25 meq PO BID fluconazole [Diflucan] 200 mg tablet 200 mg PO ONCE Qty: 2 0RF Rx Instructions: Take 1 now and if in 72 hours still have symptoms take the other acetaminophen 325 MG tablet 650 mg PO Q6H PRN PRN (Reason: Mild Pain (1-3)/Temp > 100.7 F) 0RF lovastatin 40 MG tablet 40 mg PO DAILY Qty: 30 0RF multivitamin Capsule 1 cap PO DAILY sucralfate 1 gram Tablet 1 g PO 1HR_ACHS 30 Days Qty: 120 0RF Hold Instructions: Order Changed pantoprazole 40 mg Tablet,Delayed Release (Dr/Ec) 40 mg PO BID 30 Days Qty: 60 2RF Rx Instructions: 40 mg p.o. twice daily at least for 2 months and then once daily to continue Primary Care Provider: Leroy Kidd Referrals: Leroy Kidd MD [Primary Care Provider] - 3-5 Days Disposition Disposition: Home, Self Care
[2023-01-17] MEDS: Orphenadrine 100 MG Tablet PO (02:52)
[2023-01-17] MEDS: HYDROcodone Bitartrate/Apap 5/325 Tablet PO (02:52)
[2023-01-17 02:56] LABS: Mucous, Urine 0 SEEN /hpf (<or=2+); Red Blood Cells-Urine 0 SEEN /hpf (0-5)
[2023-01-17 02:57] LABS: Color, Urine Yellow (Yellow); Glucose, Dipstick Normal (Normal); Ketone-Dipstick Negative (Negative); Leukocyte Esterase-Dipstick 25 /ul (Negative); Nitrite-Dipstick Negative (Negative); Occult Blood-Urine Negative /ul (Negative); Protein-Dipstick Negative (Negative); Urine Bilirubin Dipstick Negative (Negative); Urine Clarity Clear (Clear); Urine Urobilinogen Normal (Normal)
[2023-01-17 03:41] LABS: Bacteria 3+ /hpf (None Seen); Squamous Epithelial Cells - UA 0-5 SEEN /hpf (5-10); White Blood Cells 0-5 SEEN /hpf (0-5)
[2023-01-17] MEDS: HYDROmorphone 0.5 MG/0.5 ML SYRINGE IM (04:36)
[2023-01-17 04:53] VITALS: BP 115/43; PULSE 60; RESP 15; O2SAT 93
== END 2023-01-17 05:03 | disposition home or self-care (01) ==
PROVIDERS: Emergency Provider Emergency Medicine; PCP Family Medicine; Visit Provider Emergency Medicine
DX: S39.012A Strain of muscle, fascia and tendon of lower back, initial encounter (principal); Z87.891 Personal history of nicotine dependence; X58.XXXA Exposure to other specified factors, initial encounter; Y93.89 Activity, other specified; I10 Essential (primary) hypertension; E03.9 Hypothyroidism, unspecified; Z90.49 Acquired absence of other specified parts of digestive tract; Z98.49 Cataract extraction status, unspecified eye; Z90.710 Acquired absence of both cervix and uterus; M54.9 Dorsalgia, unspecified
CPT/HCPCS: 81001; 96372; 99282

== ENCOUNTER 2023-02-06 06:46 | Day surgery (SDC) | payer MEDICARE, BC, SELFPAY ==
[2023-02-06] VITALS (7 sets, daily range): BP systolic 91–110; BP diastolic 47–63; PULSE 50–65; RESP 16–18; TEMP 36.1–36.6; O2SAT 94–99; BMI 22.4
--- NOTE | 2023-02-06 07:19 | PCM.HP.BLA ---
History and Physical Date of Admission: 02/06/23 Date of Service: 01/09/23 MR#: [id number] Acct: [id number] Name: NUBIA CORNELL Rep #: [id number] : 1955 Provider: Dr. 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 Required: No Is patient in pain?: No Allergies morphine Adverse Reaction (Verified 01/09/23 14:25) Vomitingpotassium pills Adverse Reaction (Uncoded 01/09/23 14:25) Vomiting Medications acetaminophen 325 mg tablet 650 mg (2 x 325 mg) PO Q6H PRN PRN Mild Pain (1-3)/Temp > 100.7 F 12/27/18 [Rx Confirmed 01/09/23] lovastatin 40 mg tablet 40 mg PO DAILY CHOLESTEROL #30 tabs 12/27/18 [Rx Confirmed 01/09/23] levothyroxine 100 mcg tablet 88 mcg PO DAILY@0600 03/01/22 [History Confirmed 01/09/23] potassium bicarbonate-citric acid 25 mEq effervescent tablet (Effer-K) 25 meq PO BID 03/01/22 [History Confirmed 01/09/23] multivitamin 1 cap PO DAILY 03/26/22 [History Confirmed 01/09/23] pantoprazole 40 mg tablet,delayed release 40 mg PO BID 30 days #60 tabs 12/23/22 [Rx Confirmed 01/09/23] sucralfate 1 gram tablet 1 g PO 1HR_ACHS 30 days #120 tabs 12/23/22 [Rx Confirmed 01/09/23] fluconazole 200 mg tablet (Diflucan) 200 mg PO ONCE #2 tabs 01/09/23 [Rx Confirmed 01/09/23] PFSH Medical History ARF (acute renal failure) Arthritis Bipolar disorder Dehydration Depression Diarrhea Easy bruising Hypokalemia Hypomagnesemia Hyponatremia Hypotension Hypothyroid Leukopenia Noncompliance with medication regimen Obstipation Positive colorectal cancer screening using Cologuard test Smoker Thrombocytopenia Thyroid disease Tonsillar cancer Wears dentures Surgical History History of appendectomy History of History of cataract extraction with lens replacement History of hysterectomy History of tonsillectomy Family History Mother Cancer Lung CancerFather Cancer Brain cancer Social History Smoking Status: Current every day smoker tobacco type: cigarettes alcohol intake: never substance use type: does not use HPI HPI HPI: 67-year-old female presents for follow-up status post GI bleed and EGD revealing about 8 ulcers?H. pylori positive. Did call patient in amoxicillin as well as Flagyl and bismuth and she was already on Protonix 40 p.o. twice daily. However there is some confusion and patient did not take the bismuth as she thought it was as needed per pharmacy. Patient has finished her amoxicillin for got some doses of Flagyl still she is still finishing that up but is still on her Protonix p.o. twice daily. Patient states her stools are brown denies any black stools is aware that if she takes Pepto-Bismol she could get black stools with that. Patient does complain of having a yeast infection. Exam Const General: cooperative, healthy appearing, comfortable and no acute distress Neck Neck: normal visual inspection Resp Effort & Inspection: normal respiratory effort Cardio Rate: regular rate GI Inspection: non-distended Palpation: soft, no guarding and nontender Skin General: no rashes or lesions noted Neuro General: patient oriented x3 Psych Affect: normal affect Assessment and Plan Assessment and Plan (1) H pylori ulcer: Status: Acute (2) Yeast infection involving the vagina and surrounding area: Status: Acute Medications: New fluconazole (Diflucan) Take 1 now and if in 72 hours still have symptoms take the other 200 mg PO ONCE 2 tabs 0RF Plan We will have patient complete her Flagyl and continue the Protonix 40 mg p.o. twice daily and patient can also start the Carafate back up to 3 times daily. We will plan for repeat EGD and biopsy to check H. pylori status as well as see how the ulcers are doing. Did warn patient that she will have melena with the bismuth but recommend her take that 2 pills p.o. twice daily for a week. Did also send in some Diflucan to 100 mg p.o. x1 for 2 pills with another in 72 hours if she still has symptoms of a yeast infection. I have discussed the above with the patient. I have offered the patient esophagogastroduodenoscopy for evaluation. I have explained the risks/benefits of the procedure and described the procedure. I have discussed the risks with the patient, including but not limited to: infection, bleeding, perforation of the GI tract requiring emergency surgery, inability to complete the procedure, injury to any internal organs, complications of anesthesia, etc. - the patient understands and agrees to proceed. I have answered all the patient's questions to the patient's satisfaction and the patient has no further questions. Es Abad M.D. Pager: [phone] [facility] [address] [place] [address], [address] [place] [address] Office: [phone] Patient Instructions: Complete your flagyl and when it is done you can start the carafate and take for 1 month. Continue you pantoprazole twice daily Take Bismuth two tabs twice daily for 1 week. Coding Level of Care Code Off vis,est,level 4 Diagnoses H pylori ulcer K27.9; B96.81 Yeast infection involving the vagina and surrounding area B37.31 01/09/23 2741 <Electronically signed by Es Abad MD> Date Es Abad MD
[2023-02-06] MEDS: Lactated Ringers 1,000 ML 15 ML IV (07:21)
--- NOTE | 2023-02-06 08:15 | GASB_PTH ---
PATIENT: NUBIA CORNELL LOC: EN U#:[id number] AGE/SX: 67/F ROOM: RE02/06/[address]: Dr. Es Abad MD : 1955 BED: DIS: 02/06/2023 SPEC #: [id number] RECD: 02/06/23 13:50 STATUS: MICK JENNIFER #: [id number] JM: 02/06/23 08:[address]: Es Abad DEPT: SURGICAL PATHOLOGY RECD BY: Bernard Cantu ENTERED: 02/06/23 13:50 SP TYPE: Gastric Bx OTHR DR: Dr. Leroy Kidd MD Tissues: Gastric mucous membrane Procedures: Special Stain Group II Surgery Specimen Level IV Alcian Blue/PAS (control) HEADER OPERATION: EGD, biopsy PRE-OP DIAGNOSIS: H. pylori ulcer TISSUE SUBMITTED: Antrum biopsy for histo and H. pylori MICROSCOPIC DIAGNOSIS Antrum, biopsy: Moderate chronic gastritis. See microscopic description and comment. SJ:katie 02/07/2023 COMMENT The results of immunohistochemistry for Helicobacter pylori will be reported separately ([id number]). Alcian blue/PAS stain with matched control is used in the evaluation of the specimen. MICROSCOPIC DESCRIPTION Slides are reviewed. The specimen shows fragments of gastric mucosa with chronic inflammatory cell infiltrates in the lamina propria consisting of lymphocytes and plasma cells, consistent with moderate chronic gastritis. Focal intestinal metaplasia (goblet cell metaplasia) is also noted. A few minute lymphoid aggregates are noted, favor benign. GROSS DESCRIPTION Received in fixative is one container labeled with the patient's name and designated antrum biopsy. The specimen consists of one irregular fragment of light cadena soft tissue that measures 0.5 x 0.3 x 0.1 cm. The specimen is totally submitted in one cassette. / JUAN:katie 02/06/2023 TC:3 CPT: 80317, 40804
--- NOTE | 2023-02-06 08:15 | IMM_PTH ---
PATIENT: NUBIA CORNELL LOC: EN U#:[id number] AGE/SX: 67/F ROOM: RE02/06/[address]: Dr. Es Abad MD : 1955 BED: DIS: 02/06/2023 SPEC #: [id number] RECD: 02/06/23 14:13 STATUS: MICK RELokesh #: [id number] JM: 02/06/23 08:[address]: Es Abad DEPT: IMMUNOHISTOCHEMISTRY RECD BY: Nola Hendrickson ENTERED: 02/06/23 14:14 SP TYPE: IMMUNO OTHR DR: Dr. Leroy Kidd MD Tissues: Stomach, NOS Procedures: H Pylori (initial) PHYSICIAN & INSTITUTION [place] [id number] SPECIMEN INFORMATION: Tissue Source: Antrum Clinical Info: H. pylori ulcer Specimen Number: [id number] CPT code: 10114 METHODOLOGY: Deparaffinized sections of prefer/formalin-fixed tissue or PAP/DQ stained slides are incubated with monoclonal/polyclonal antibodies/oligonucleotide probes. Localization is made via biotin free immunoperoxidase method. Appropriate controls are performed and reacted as expected. Results on target cell population are indicated in the following table: RESULTS: ANTIBODY / CLONE RESULT H Pylori (polyclonal) negative These tests were developed and their performance characteristics determined by [facility]. They may not have been cleared or approved by the U.S. Food and Drug Administration. The FDA has determined that such clearance or approval is not necessary. The above immunohistochemical/dualISH markers are ordered and reviewed by the Pathologist. INTERPRETATION: Antrum, biopsy: Negative for Helicobacter pylori organisms. JUAN:katie 02/07/2023
--- NOTE | 2023-02-06 08:21 | OP.CCLET_ITS ---
02/06/2023 Leroy Kidd Re : Upper GI endoscopy procedure for Sanaz Srinivasan Dear Bernabe This procedure was performed on Monday, February 06, 2023. My impressions and recommendations are as follows: Impressions : - Z-line irregular, 40 cm from the incisors. - Gastritis. Biopsied. - Normal examined duodenum. Recommendations : - Await pathology results. - Continue present medications. My findings are described in the full procedure note, which is enclosed. If I can be of further assistance, please feel free to contact me at Doctor phone number(s): , Work: . Sincerely, MD Es Orozco MD 02/06/2023 8:20:50 AM This report has been signed electronically.
--- NOTE | 2023-02-06 08:21 | OP.EGD_ITS ---
Patient Name: Sanaz Srinivasan Procedure Date: 02/06/2023 7:54 AM Date of : 1955 Age: 67 Procedure: Upper GI endoscopy Indications: Follow-up of peptic ulcer Providers: Es Abad MD Referring MD: Es Abad MD Medicines: Monitored Anesthesia Care Patient Profile: This is a 67 year old female. Hx of multiple gastric ulcers, +h.pylori- treated w abx Complications: No immediate complications. Procedure: Pre-Anesthesia Assessment: - Prior to the procedure, a History and Physical was performed, and patient medications and allergies were reviewed. The patient's tolerance of previous anesthesia was also reviewed. The risks and benefits of the procedure and the sedation options and risks were discussed with the patient. All questions were answered, and informed consent was obtained. Prior Anticoagulants: The patient has taken no anticoagulant or antiplatelet agents. ASA Grade Assessment: Per anesthesia. After reviewing the risks and benefits, the patient was deemed in satisfactory condition to undergo the procedure. After obtaining informed consent, the endoscope was passed under direct vision. Throughout the procedure, the patient's blood pressure, pulse, and oxygen saturations were monitored continuously. The gastroscope was introduced through the mouth, and advanced to the second part of duodenum. The upper GI endoscopy was accomplished without difficulty. The patient tolerated the procedure well. Scope In: 8:05:02 AM Scope Out: 8:10:38 AM Total Procedure Duration Time 0 hours 5 minutes 36 seconds Findings: The Z-line was irregular and was found 40 cm from the incisors. The cardia and gastric fundus were normal on retroflexion. Diffuse moderate inflammation [Hemorrhage] characterized by erythema, previously seen ulcers are healing well was found in the entire examined stomach. Biopsies were taken with a cold forceps for histology. Biopsies were taken with a cold forceps for Helicobacter pylori cultures and Helicobacter pylori testing using a rapid urease test. The examined duodenum was normal. Impression: - Z-line irregular, 40 cm from the incisors. - Gastritis. Biopsied. - Normal examined duodenum. Recommendation: - Await pathology results. - Continue present medications. Procedure Code(s): --- Professional --- 42365, Esophagogastroduodenoscopy, flexible, transoral; with biopsy, single or multiple Diagnosis Code(s): --- Professional --- K22.89, Other specified disease of esophagus K29.70, Gastritis, unspecified, without bleeding K27.9, Peptic ulcer, site unspecified, unspecified as acute or chronic, without hemorrhage or perforation CPT copyright 2021 [employer]. All rights reserved. The codes documented in this report are preliminary and upon vp care management review may be revised to meet current compliance requirements. MD Es Orozco MD 02/06/2023 8:20:50 AM This report has been signed electronically. Number of Addenda: 0 Note Initiated On: 02/06/2023 7:54 AM
== END 2023-02-06 08:59 | disposition home or self-care (01) ==
LOC: EN 06:47 → AC 06:48
PROVIDERS: PCP Family Medicine; Referring Provider Family Medicine; Visit Provider Surgery
PROC: 0DJ08ZZ Inspection of Upper Intestinal Tract, Via Natural or Artificial Opening Endoscopic (ICD-10-PCS; CPT 43235; principal; 2023-02-06 08:10)
DX: K27.9 Peptic ulcer, site unspecified, unspecified as acute or chronic, without hemorrhage or perforation (principal); K29.70 Gastritis, unspecified, without bleeding; R41.0 Disorientation, unspecified; B37.31 Acute candidiasis of vulva and vagina; B96.81 Helicobacter pylori [H. pylori] as the cause of diseases classified elsewhere; E03.9 Hypothyroidism, unspecified; K22.89 Other specified disease of esophagus
CPT/HCPCS: 43239; 88305; 88313; 88342; J7120; J2405

== ENCOUNTER → 2023-04-25 | Outpatient (CLI) | payer MEDICARE, BC, SELFPAY ==
[2023-04-25 15:35] LABS: Absolute Neutrophil Count 2.9 X10^3/uL (2.0-7.7); Basophil# 0.04 X10^3/uL; Basophil% 0.7 % (0-1); Eosinophil# 0.37 X10^3/uL; Eosinophils% 6.1 % (0-5); Hematocrit 47.3 % (37-47); Hemoglobin 15.1 g/dL (12.0-15.0); Lymphocyte % 36.5 % (19-41); Mean Corp Hgb Conc 31.9 g/dL (32-36); Mean Corpuscular Hgb 30.6 pg (27.0-32.0); Mean Corpuscular Volume 95.9 fL (81-99); Mean Platelet Vol. 10.5 fl (6.2-12.0); Monocyte# 0.47 X10^3/uL; Monocyte% 7.8 % (0-10); NRBC Flagged by Analyzer 0 % (0-5); Neutrophil # 2.92 X10^3/uL (2.7-7.7); Neutrophil % 48.6 % (47-70); Platelet Count 187 K/mm3 (150-450); RBC Distribution Width CV 12.9 % (11.6-14.6); RBC Distribution Width SD 45.5 fl (35.1-43.9); Red Blood Count 4.93 M/mm3 (4.2-5.4)
[2023-04-25 16:10] LABS: AST(SGOT) 22 U/L (15-37); Alanine Aminotransfer ALT/SGPT 20 U/L (13-56); Albumin, Serum 3.9 g/dL (3.2-5.0); Alkaline Phosphatase 90 U/L (45-117); Anion Gap 5 (5-15); BUN 16 mg/dL (7-18); Calcium,Total 9.9 mg/dL (8.5-10.1); Chloride 108 mmol/L (98-107); Cholesterol 157 mg/dL (200); Creatinine, Serum 0.94 mg/dL (0.55-1.02); EST Glomerular Filtration Rate 63 mL/min (>60); Est Glom Filt Rate - Afr Amer 76 mL/min (>60); Globulin 3.9 g/dL (2.2-4.2); Glucose 96 mg/dL (74-106); High Density Lipoprotein 69 mg/dL; Potassium 4.6 mmol/L (3.5-5.1); Protein, Total 7.8 g/dL (6.4-8.2); Sodium Level 140 mmol/L (136-145); Thyroid Stim Hormone (TSH) 9.88 uIU/mL (0.358-3.74); Triglycerides 86 mg/dL; Very Low Density Lipoprotein 17 mg/dL (5-40)
== END | disposition home or self-care (01) ==
LOC: BIMLAB 13:31
PROVIDERS: PCP Internal Medicine; Referring Provider Internal Medicine; Visit Provider Internal Medicine
DX: E03.9 Hypothyroidism, unspecified (principal); K21.9 Gastro-esophageal reflux disease without esophagitis; B96.81 Helicobacter pylori [H. pylori] as the cause of diseases classified elsewhere; E78.2 Mixed hyperlipidemia
CPT/HCPCS: 36415; 80053; 80061; 84443; 85025

== ENCOUNTER → 2024-01-27 | Outpatient (CLI) | payer MEDICARE, BC, SELFPAY ==
[2024-01-27 16:33] LABS: Thyroid Stim Hormone (TSH) 0.054 uIU/mL (0.358-3.740)
== END | disposition home or self-care (01) ==
LOC: BIMLAB 13:20
PROVIDERS: Nurse Practitioner; PCP Internal Medicine; Referring Provider Internal Medicine; Visit Provider Internal Medicine
DX: E03.9 Hypothyroidism, unspecified (principal)
CPT/HCPCS: 36415; 84443

== ENCOUNTER → 2024-04-14 | Outpatient (CLI) | payer MEDICARE, BC, SELFPAY ==
[2024-04-14 11:04] LABS: Thyroid Stim Hormone (TSH) 0.031 uIU/mL (0.358-3.740)
== END | disposition home or self-care (01) ==
PROVIDERS: PCP Internal Medicine; Referring Provider Nurse Practitioner; Visit Provider Nurse Practitioner
DX: E03.9 Hypothyroidism, unspecified (principal)
CPT/HCPCS: 36415; 84443

== ENCOUNTER → 2024-07-02 | Outpatient (CLI) | payer MEDICARE, BC, SELFPAY ==
[2024-07-02 17:09] LABS: Absolute Lymphocyte Count 2.41 X10^3/uL (0.83-4.51); Absolute Neutrophil Count 2.8 X10^3/uL (2.0-7.7); Basophil# 0.05 X10^3/uL; Basophil% 0.8 % (0-1); Eosinophil# 0.32 X10^3/uL; Eosinophils% 5.3 % (0-5); Hematocrit 48.3 % (37-47); Hemoglobin 15.9 g/dL (12.0-15.0); Lymphocyte # 2.41 X10^3/ul (0.83-4.51); Mean Corp Hgb Conc 32.9 g/dL (32-36); Mean Corpuscular Hgb 31.1 pg (27.0-32.0); Mean Corpuscular Volume 94.5 fL (81-99); Mean Platelet Vol. 10.6 fl (6.2-12.0); Monocyte# 0.48 X10^3/uL; NRBC Flagged by Analyzer 0 % (0-5); Neutrophil # 2.76 X10^3/uL (2.7-7.7); Neutrophil % 45.7 % (47-70); Platelet Count 161 K/mm3 (150-450); RBC Distribution Width SD 44.9 fl (35.1-43.9); Red Blood Count 5.11 M/mm3 (4.2-5.4)
[2024-07-02 21:15] LABS: ALB/GLOB Ratio 1.4 RATIO (0.9-2.4); AST(SGOT) 23 U/L (<=31); Alanine Aminotransfer ALT/SGPT 12 U/L (<=34); Albumin, Serum 4.6 g/dL (3.4-4.8); Alkaline Phosphatase 82 U/L (35-104); Anion Gap 12 (5-15); BUN 14 mg/dL (4-19); BUN/Creat Ratio 15.2 RATIO (10-20); Calcium,Total 10.7 mg/dL (7.6-11.0); Carbon Dioxide 23.7 mmol/L (21.0-32.0); Chloride 103 mmol/L (98-108); Cholesterol 185 mg/dL (<=200); EST Glomerular Filtration Rate 69 (>60); Globulin 3.4 g/dL (2.2-4.2); Glucose 93 mg/dL (70-99); High Density Lipoprotein 82 mg/dL; Low Density Lipoprotein Calc. 90 mg/dL; Potassium 4.5 mmol/L (3.3-5.1); Protein, Total 7.9 g/dL (5.9-8.4); Sodium Level 139 mmol/L (133-145); Thyroid Stim Hormone (TSH) 0.737 uIU/mL (0.300-4.200); Total Bilirubin 0.44 mg/dL (0.00-1.30); Triglycerides 65 mg/dL; Very Low Density Lipoprotein 13 mg/dL (5-40); Vitamin D,25 Hydroxy 39.2 ng/mL (30-100); cholesterol:hdl ratio screen 2.26
== END | disposition home or self-care (01) ==
LOC: BIMLAB 15:23
PROVIDERS: PCP Internal Medicine; Referring Provider Internal Medicine; Visit Provider Internal Medicine
DX: E78.2 Mixed hyperlipidemia (principal); E03.9 Hypothyroidism, unspecified; M81.0 Age-related osteoporosis without current pathological fracture
CPT/HCPCS: 36415; 80053; 80061; 82306; 84443; 85025